=== PATIENT | male | born 1940 | race Caucasian/White ===

== ENCOUNTER 2024-04-13 15:27 | Observation (INO) | payer MEDICARE, MEDICAID, SELFPAY ==
[2024-04-13] VITALS (14 sets, daily range): BP systolic 141–168; BP diastolic 74–94; PULSE 64–98; RESP 15–20; TEMP 36.4–36.9; O2SAT 82–97; BMI 28.5; BMI 27.8
--- NOTE | 2024-04-13 15:28 | PC.NURSE ---
DR NÚÑEZ AT BEDSIDE
--- NOTE | 2024-04-13 15:34 | XR_ITS ---
PROCEDURE INFORMATION: Exam: XR Chest Exam date and time: 04/13/2024 4:27 PM Age: 84 years old Clinical indication: Other: AMS TECHNIQUE: Imaging protocol: Radiologic exam of the chest. Views: 1 view. COMPARISON: No relevant prior studies available. FINDINGS: Lungs: Multiple calcified granulomas are noted in both lungs. There is no focal consolidation. Senescent changes are present. Pleural spaces: No pleural effusion. No pneumothorax. Heart/Mediastinum: No significant cardiac silhouette enlargement. Bones/joints: Unremarkable. IMPRESSION: 1. No acute abnormality. 2. Chronic findings as discussed above.
--- NOTE | 2024-04-13 15:43 | ED_ITS ---
Discharge Plan Disposition Patient Disposition: Admitted Clinical Impressions Clinical Impression: Encephalopathy acute, Adult failure to thrive, Physical deconditioning Instructions Patient Instructions: DI for Altered Mental Status Discharge ED Provider: [facility] General Adult HPI General Chief complaint: Altered Mental Status Stated complaint: WEAKNESS Time Seen by Provider: 04/13/24 15:34 History of Present Illness HPI narrative: Please note that above description of symptoms, in this electronic medical record under categorization of recalled from ER triage doctor by RN are reflective of an initial nursing assessment, however, is not reflective of my full history and physical exam that was personally taken and clarified. Consequentially, this preceding description of symptoms, which may include the patient's categorized chief complaint in the EMR, do not reflect my personal clinical impression, and the ultimate description of history of present illness and patient stated complaints should be deferred to this section of the note. Unless stated otherwise or congruent with this section of the note, additional signs, symptoms, or incongruence should be interpreted as inaccurate with my clinical impression. Related Data Home Medications ?Medication ?Instructions ?Recorded ?Confirmed atorvastatin 40 mg tablet 40 mg PO HS 04/13/24 04/13/24 clopidogrel 75 mg tablet 75 mg PO DAILY 04/13/24 04/13/24 duloxetine 60 mg capsule,delayed 60 mg PO DAILY 04/13/24 04/13/24 release furosemide 20 mg tablet (Lasix) 20 mg PO DAILY 04/13/24 04/13/24 gabapentin 100 mg capsule 100 mg PO DAILY 04/13/24 04/13/24 gabapentin 300 mg tablet 300 mg PO HS 04/13/24 04/13/24 hydrocodone 10 mg-acetaminophen 1 tab PO Q6H PRN Pain 04/13/24 04/13/24 325 mg tablet metformin 1,000 mg tablet 1,000 mg PO BID 04/13/24 04/13/24 metoprolol tartrate 50 mg tablet 50 mg PO BID 04/13/24 04/13/24 tamsulosin 0.4 mg capsule (Flomax) 0.4 mg PO HS 04/13/24 04/13/24 Allergies Allergy/AdvReac Type Severity Reaction Status Date / Time No Known Allergies Allergy Verified 04/13/24 15:49 PFSH [facility] Disclaimer: The information contained in this section may have been updated after the patient was seen, as this information can be updated by other users. Social History Smoking Status: Unknown if ever smoked alcohol intake: never current occupational status: retired Travel in the last 8 weeks: None ROS Obtained: Yes All systems reviewed & no additional complaints except as documented Physical Exam General General appearance: alert and in no apparent distress Head Head exam: atraumatic and normocephalic Eye Eye exam: Present normal appearance, PERRL and EOMI ENT ENT exam: Present other (Vomitus on face) Neck Neck exam: Present normal inspection, full ROM and trachea midline Respiratory Respiratory exam: Present normal lung sounds bilaterally; Absent respiratory distress, wheezes, stridor, accessory muscle use or prolonged expiratory phase Cardiovascular Cardiovascular exam: Present regular rate, normal rhythm and other (Pulses equal symmetric in upper and lower extremities) Abdominal Exam Abdominal exam: Present soft; Absent distention, tenderness, guarding, rebound, rigidity or pulsatile mass Extremities Exam Extremities exam: Present edema (1+ pitting, chronic overlying skin changes) Neurological Exam Neurological exam: Present alert and CN II-XII intact; Absent oriented X3, normal gait or motor sensory deficit Skin Skin exam: Present warm and dry; Absent diaphoresis or erythema Medical Decision Making Medical Records Medical records reviewed: Yes I reviewed the patient's medical records. Screening: Per USPSTF and CDC recommendations, given the prevalence of disease in our region, it is our hospital?s policy to screen for HIV and viral Hepatitis for all patients aged 18 and over and those with ongoing risk factors. Ang Inquiry Pt receiving controlled substance: No Ang was queried for this patient: No Vital Signs: 04/13/24 15:27 Temperature 98.2 F Temperature Source Oral Pulse Rate [Radial] 96 H Respiratory Rate 18 Blood Pressure [Right Arm] 153/91 H Blood Pressure Mean [Right Arm] 111 Blood Pressure Source [Right Arm] Automatic Cuff Blood Pressure Position [Right Arm] Sitting 02 Sat by Pulse Oximetry 95 Oxygen Delivery Method Room Air Lab Data Lab Results 04/13/24 16:05: WBC 10.3, RBC 4.14 L, Hgb 14.0 L, Hct 40.8 L, MCV 98.6 H, MCH 33.8 H, MCHC 34.3, RDW 15.5, Plt Count 325, MPV 9.5, Neut % (Auto) 51.8, Lymph % (Auto) 38.9, [place] % (Auto) 6.4, Eos % (Auto) 2.0, Baso % (Auto) 0.7, Neut # (Auto) 5.3, Lymph # (Auto) 4.0, [place] # (Auto) 0.7, Eos # (Auto) 0.2, Baso # (Auto) 0.1, PT 12.5, INR 1.16 H, APTT 24.5, VBG pH 7.29 L, VBG pCO2 53.3 H, VBG pO2 34.3, VBG HCO3 25.3, VBG Total CO2 26.9, VBG O2 Saturation 59.2, VBG Base Excess -1.2, VBG Lactic Acid 3.3 H, Sodium 137, Potassium 4.0, Chloride 101, Carbon Dioxide 27, Anion Gap 13.0, BUN 11, Creatinine 0.70, Estimated Creat Clear 75, Estimated GFR 108, Est GFR ( Amer) 131, Glucose 140 H, Calcium 9.4, Magnesium 1.4 L, Total Bilirubin 1.3, AST 31, ALT 29, Alkaline Phosphatase 88, Troponin I < 0.01, NT-Pro-B Natriuret Pep 1670 H, Total Protein 7.9, Albumin 4.5, Globulin 3.4 H, Albumin/Globulin Ratio 1.3, Triglycerides 154 H, C holesterol 123 L, LDL Cholesterol Direct 65.47 L, VLDL Cholesterol 31, HDL Cholesterol 36 L, Cholesterol/HDL Ratio 3.4, Lipase 140, TSH 1.28, Thyroxine (T4) 9.5, Salicylates < 1.0 L, Plasma/Serum Alcohol < 10 04/13/24 16:18: Lactate 3.3 H 04/13/24 16:05 04/13/24 16:05 Orders (Tests/Meds): ED MEDICATIONS Generic Name Dose Route Start Last Admin Trade Name Freq PRN Reason Stop Dose Admin Lactated Ringer's 1,000 mls @ 999 mls/hr 04/13/24 16:59 Lactated Ringer's 1000 Ml Bag IV 04/13/24 17:59 .Q1H1M ONE Discontinued Medications Generic Name Dose Route Start Last Admin Trade Name Freq PRN Reason Stop Dose Admin Iopamidol 150 ml 04/13/24 16:50 04/13/24 16:56 Iopamidol-370 (76%);100ml Bottle IV 04/13/24 16:51 Not Given ONCE ONE Sodium Chloride 10 ml 04/13/24 16:50 04/13/24 16:57 Sodium Chloride 0.9% 10ml Syr (Rad Only) IV 04/13/24 16:51 Not Given ONCE ONE Sodium Chloride 50 ml 04/13/24 16:50 04/13/24 16:57 0.9 % Sodium Chloride 50 Ml Vial IV 04/13/24 16:51 Not Given ONCE ONE ORDERS Category Date Time Status CT head/brain wo con Stat Cat Scan 04/13/24 16:26 Completed Grain Elevator Motor Starter Consult [Consult to Case Management] [ Cons 04/13/24 17:18 Active CONS] Routine XR chest portable Stat Exams 04/13/24 15:34 Completed Acetone, Serum (Rapid) Stat Lab 04/13/24 16:05 Results Complete Blood Count Auto Diff Stat Lab 04/13/24 16:05 Completed Comprehensive Metabolic Panel Stat Lab 04/13/24 16:05 Results Ethanol [Ethyl Alcohol] Stat Lab 04/13/24 16:05 Completed HIV Combo Stat Lab 04/13/24 16:05 Received Hemoglobin A1C Stat Lab 04/13/24 16:05 Received Hepatitis C Ab Qual. W/ RFX Stat Lab 04/13/24 16:05 Received Lactic Acid Stat Lab 04/13/24 16:18 Completed Lipase Stat Lab 04/13/24 16:05 Completed Lipid Panel Stat Lab 04/13/24 16:05 Completed Magnesium Stat Lab 04/13/24 16:05 Completed NT Pro Brain Natriuretic Pep. Stat Lab 04/13/24 16:05 Completed PT INR [Prothrombin Time INR] Stat Lab 04/13/24 16:05 Completed PTT [Activated Partial Thrombo Time] Stat Lab 04/13/24 16:05 Completed Salicylate Stat Lab 04/13/24 16:05 Results T4 (Thyroxine) Stat Lab 04/13/24 16:05 Results TSH [Thyroid Stimulating Hormone] Stat Lab 04/13/24 16:05 Results Troponin I Q3H Lab 04/13/24 18:45 Ordered Troponin I Q3H Lab 04/13/24 21:45 Ordered Troponin I Stat Lab 04/13/24 16:05 Results Urinalysis and Microscopic Stat Lab 04/13/24 15:38 Ordered Blood Culture Stat Micro 04/13/24 17:20 Received Venous Blood Gas Stat RT 04/13/24 16:05 Completed HEART Score History (anamnesis): Slightly suspicious ECG: Normal Age: >65 years Risk factors: 3 or more risk factors Troponin: </= normal limit HEART Score: 4 Medical Decision Narrative: 84-year-old male history of hypertension, hyperlipidemia, CAD status post stenting, diabetes, chronic debility with stage I pressure ulcer presenting with weakness. Per EMS, family called EMS because they wanted EMS to take him to inpatient rehab. EMS told family that they do not transport patients to rehab, so patient's family told EMS to just take him to the hospital. Patient in no acute complaints on their arrival. Per EMS, patient was alert, oriented, answering questions appropriately and did not have any complaints. Glucose 126 just prior to arrival with EMS. On my evaluation, patient is alert, oriented only to person. States that he thinks we are in a garage, and the year is 20 something. Denies any acute complaints at this time. History was obtained via conversation with EMS, patient. On arrival, patient hemodynamically stable, alert, appropriately interactive, moving all extremities spontaneously, pupils equal and reactive to light. Full physical exam performed and significant for NIHSS 0. Patient following commands bilaterally. Pupils are 3 mm and reactive bilaterally. He does have vomitus on his face, but denies any acute vomiting. States that it was the EMS ride that made him feel nauseated. No headache, vision changes, chest pain, shortness of breath, abdominal pain, or any other complaints. Patient's lungs are quiet bilaterally without any focal breath sounds, cardiac exam with no murmur gallop or rub, but he does have 1+ lower extremity pitting edema with chronic skin changes. Stage I sacral decubitus ulcer. Differential includes acute on chronic debility, deconditioning, musculoskeletal weakness, sepsis, urinary tract infection, metabolic abnormality, acute renal failure, pneumonia, iatrogenic, overdose, ACS, [place] among others. Patient placed on continuous cardiac monitoring and continuous pulse ox with initial blood pressure 153/91, heart rate 96, saturation 95% on room air. Independent interpretation of EKG shows sinus rhythm 93 bpm with MO 177, QRS 104, QTc 425. Leftward axis. No acute ischemic change. Patient was given 1 L fluids for symptomatic management and correction of underlying abnormalities. Workup independently interpreted and significant for nonactionable CBC or chemistry. Patient's kidney function normal. Troponin negative. VBG with mild respiratory acidosis with 7.29 pH, CO2 mildly elevated at 53.3. Lactate 3.3. Magnesium low, this was repleted IV. On independent interpretation of imaging, patient's lungs without acute infiltrate. No obvious cardiopulmonary disease. CT head without contrast with generalized cerebral volume loss with dilated ventricles and deep sulci. See radiology read for full review of final results. On reevaluation, patient still has no acute complaints. Family was contacted and stated that they initially called EMS because patient had what appeared to be a wound on his bottom. Son is able to bathe the patient 1 time a week and otherwise, his mother (patient's ) largely unable to take care of patient in any regard. Combination of concern for wound on his buttocks as well as clinical deterioration and inability to care for patient at home prompted EMS call. Regarding social determinants of health, OT and PT were consulted and case was discussed for evaluation for placement. business services intern was also consulted to aid with placement. Hospital medicine was consulted and case was discussed at length. To be admitted for placement. Given patient presentation, workup, history, this most likely represents adult failure to thrive, acute on chronic deconditioning, need for placement. Because patient high risk for clinical decompensation, deemed appropriate for inpatient admission. Vice President Of [employer] disclaimer Much of this encounter note is an electronic lockstitch machine operator spoken language to printed text. Electronic lockstitch machine operator of the spoken language may permit errors. Although I have reviewed the note, some errors may still exist. Critical Care Critical Care Time Critical Care Time: No
[2024-04-13 16:19] LABS: Basophils # 0.1 K/mm3 (0-0.2); Basophils % 0.7 % (0.1-2.0); Eosinophils # 0.2 K/mm3 (0.0-0.4); Hematocrit 40.8 % (42.0-52.0); Lymphocytes % 38.9 % (10-50); Mean Corpuscular HGB Conc 34.3 g/dL (31.8-35.4); Mean Corpuscular Hemoglobin 33.8 pg (27.0-31.2); Mean Corpuscular Volume 98.6 fl (80-94); Mean Platelet Volume 9.5 fl (7.4-10.4); Monocytes # 0.7 K/mm3 (0.1-1.0); Monocytes % 6.4 % (1.7-9.3); Neutrophils # 5.3 K/mm3 (1.8-7.8); Neutrophils % 51.8 % (37.0-80.0); Platelet Count 325 K/mm3 (142-424); Red Blood Count 4.14 M/mm3 (4.60-6.20); Red Cell Distribution Width 15.5 % (11.5-17.5); White Blood Count 10.3 K/mm3 (4.8-10.8)
[2024-04-13 16:22] LABS: VBG Base Excess -1.2 mmol/L (-2.4-2.3); VBG HCO3 25.3 mmol/L (23-30); VBG Oxygen Saturation 59.2 % (50-70); VBG PCO2 53.3 mmol/L (35-51); VBG PH 7.29 mmol/L (7.31-7.41); VBG PO2 34.3 mmol/L (28-40); VBG Total CO2 26.9 mmol/L (23-27)
[2024-04-13 16:24] LABS: Lactate Venous 3.3 mmol/L (0.4-2.0)
--- NOTE | 2024-04-13 16:26 | CT_ITS ---
PROCEDURE INFORMATION: Exam: CT Head Without Contrast Exam date and time: 04/13/2024 4:25 PM Age: 84 years old Clinical indication: Altered mental status/memory loss; Additional info: AMS TECHNIQUE: Imaging protocol: Computed tomography of the head without contrast. Radiation optimization: All CT scans at this facility use at least one of these dose optimization techniques: automated exposure control; mA and/or kV adjustment per patient size (includes targeted exams where dose is matched to clinical indication); or iterative reconstruction. COMPARISON: No relevant prior studies available. FINDINGS: Brain: There is decreased attenuation within the periventricular white matter which is nonspecific and may be related to chronic microangiopathic ischemic change. Transependymal flow of cerebral spinal fluid is less likely. There is no acute intracranial hemorrhage or midline shift. Chronic encephalomalacia and gliosis is present in the right occipital lobe. 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 Cerebral ventricles: The lateral ventricles are moderately enlarged. The 3rd ventricle is mildly dilated. The fourth ventricle is normal in caliber. No obstructing mass is seen. Mild cerebral substance loss is present. However, the sulci along the cerebral convexities do not appear significantly enlarged to suggest proportionate underlying cerebral volume loss. Therefore, the ventriculomegaly may be related to normal pressure hydrocephalus and/or ex vacuo dilation. Paranasal sinuses: There is no acute sinusitis. Mastoid air cells: Visualized mastoid air cells are well aerated. Orbital cavities: The visualized orbits appear unremarkable. Bones: Unremarkable. No acute fracture. Soft tissues: Unremarkable. IMPRESSION: 1. 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 2. No acute intracranial hemorrhage. 3. Chronic findings as discussed above.
[2024-04-13 16:32] LABS: Chloride 101 mmol/L (98-107)
[2024-04-13 16:33] LABS: Albumin Level 4.5 g/dl (3.5-5.0); Sodium 137 mmol/L (136-145)
[2024-04-13 16:35] LABS: Blood Urea Nitrogen 11 mg/dl (9-20); Creatinine Clearance Estimated 75 mL/min (50-200); Estimated Glomerular Filt Rate 108 ml/min (>60); GFR (African American) 131 ML/MIN (>60)
[2024-04-13 16:36] LABS: Alanine Aminotransferase 29 U/L (12-78); Albumin/Globulin Ratio 1.3 (1.1-1.8); Alkaline Phosphatase 88 U/L (38-126); Aspartate Amino Transferase 31 U/L (17-59); Bilirubin,Total 1.3 mg/dl (0.2-1.3); Calcium 9.4 mg/dl (8.4-10.2); Carbon Dioxide 27 mmol/L (22.0-30.0); Globulin 3.4 g/dL (1.3-3.2); Glucose 140 mg/dl (74-100); Total Protein,Serum 7.9 g/dl (6.3-8.2)
[2024-04-13 16:39] LABS: Activated Partial Thrombo Time 24.5 seconds (22.8-30.6)
[2024-04-13 16:52] LABS: T4 (Thyroxine) 9.5 ug/dl (5.53-11.0)
[2024-04-13 16:58] LABS: Lactic Acid 3.3 mmol/L (0.7-2.1)
[2024-04-13 16:58] LABS: Salicylate < 1.0 mg/dL (2.0-20.0); Troponin I < 0.01 ng/ml (0.00-0.034)
[2024-04-13 16:59] LABS: INR 1.16 (0.9-1.1); Prothrombin Time 12.5 seconds (10.1-12.5)
--- NOTE | 2024-04-13 17:02 | PC.NURSE ---
SPOKE WITH SON REYNA ([phone]) CALL WITH ANY CONCERNS
[2024-04-13 17:06] LABS: Thyroid Stimulating Hormone 1.28 uIU/mL (0.465-4.68)
--- NOTE | 2024-04-13 17:06 | PC.NURSE ---
DR NÚÑEZ SPEAKING WITH HOSPITALIST
[2024-04-13 17:15] LABS: Chol/HDL Ratio 3.4 (1-3.5); Cholesterol 123 mg/dl (140-200); HDL Cholesterol 36 mg/dl (40-60); Lipase 140 U/L (23-300); Magnesium 1.4 mg/dl (1.6-2.3); Triglycerides 154 mg/dl (30-150); VLDL Cholesterol 31 mg/dL (0-40)
[2024-04-13 17:19] LABS: Ethyl Alcohol < 10 mg/dl (0-10)
[2024-04-13 17:26] LABS: NT Pro Brain Natriuretic Pep. 1670 pg/mL (0-450)
--- NOTE | 2024-04-13 17:29 | ECG_ITS ---
APPROVED REPORT Exam: Resting ECG HR:93 bpm ECG Measurements Heart Rate 93 AXES [place] 177 P 87 QRSd 104 QRS -34 QT 375 T 34 QTc 425 Conclusion Sinus rhythm Q waves in inferior leads consistent with old myocardial infarction Electronically signed by : TRISTON NÚÑEZ, 04/15/2024 22:29:00
--- NOTE | 2024-04-13 17:31 | INFXCTL.NOTE ---
housekeeper nanny called and states bed for pt is being cleaned, will be a while.
[2024-04-13 17:41] LABS: Direct LDL Cholesterol 65.47 mg/dL (100-129)
[2024-04-13 17:55] LABS: Hemoglobin A1C 6.7 % (4.0-6.0)
[2024-04-13 17:58] LABS: HIV Combo NEGATIVE (Negative)
--- NOTE | 2024-04-13 17:59 | PC.NURSE ---
JOSÉ MIGUEL [phone]
[2024-04-13] MEDS: MAGNESIUM SULFATE IN WATER 2 GM/50 ML PIGGYBACK IV ×3 (18:05→23:02)
[2024-04-13] MEDS: LACTATED RINGERS 1000ML 1,000 ML 999 ML IV (18:05)
[2024-04-13 18:06] LABS: Hepatitis C Ab Qual. W/ RFX NEGATIVE (Negative)
[2024-04-13 18:16] LABS: Microscopic, Urine URINE MICROSCOPIC (MICROSCOPIC)
[2024-04-13 18:18] LABS: Appearance,Urine CLEAR (Clear); Bilirubin,Urine Negative (Negative); Blood, Urine Negative (Negative); Color,Urine YELLOW (Yellow); Glucose,Urine (UA) Negative (Negative); Ketones,Urine Negative (Negative); Leukocyte Esterase,Urine Negative (Negative); Nitrate,Urine Negative (Negative); Protein,Urine Negative (Negative); Specific Gravity, Urine 1.025 (1.005-1.030)
[2024-04-13 18:26] LABS: Acetone, Serum (Rapid) None Detected (None Detect)
[2024-04-13 18:33] LABS: Bacteria,Urine Trace /lpf
--- NOTE | 2024-04-13 18:40 | PC.NURSE ---
arrived by stretcher from ED
[2024-04-13 20:25] LABS: Reflex Lactic Add Lactic Reflex
[2024-04-13 20:37] LABS: Troponin I < 0.01 ng/ml (0.00-0.034)
[2024-04-13 20:51] LABS: Lactic Acid Follow Up (RFLX 1) 2.4 mmol/L (0.7-2.1)
--- NOTE | 2024-04-13 20:59 | P.HP_ITS ---
History of Present Illness *Admission Date: 04/13/24 *Reason for visit:: Family unable to take care of patient, physical decondition *History of present illness: Gerardo Kay is a 84-year-old male with a medical history significant for CAD s/p 6 stents, type 2 diabetes, BPH who presents from home after family called EMS for patient to be placed at a fpc. Per patient and son who was on the phone, patient lives with his and grandson who are unable to take care of him as he is essentially bedbound at this time due to significant physical deconditioning. This has worsened over the past several months. Denies difficulty with urination, bowel movements. I spoke to son over the phone who really desires his dad to get short-term rehab and moving with him instead who is able to take care of him. Workup in the ED relatively unremarkable. Case discussed with ED provider and decision was made to admit patient for significant physical deconditioning and unable to take care of himself. [facility] Disclaimer: The information contained in this section may have been updated after the patient was seen, as this information can be updated by other users. Social History (Updated 04/13/24 @ 17:58 by [facility]o South MD) Smoking Status: Unknown if ever smoked alcohol intake: never current occupational status: retired Travel in the last 8 weeks: None Other Medical History Have you received the Flu Vaccine for this season: No Have you received the Pneumonia Vaccine: No Meds Home Medications and Allergies Home Medications ?Medication ?Instructions ?Recorded ?Confirmed ?Type atorvastatin 40 mg tablet 40 mg PO HS 04/13/24 04/13/24 History clopidogrel 75 mg tablet 75 mg PO DAILY 04/13/24 04/13/24 History duloxetine 60 mg capsule,delayed 60 mg PO DAILY 04/13/24 04/13/24 History release furosemide 20 mg tablet (Lasix) 20 mg PO DAILY 04/13/24 04/13/24 History gabapentin 100 mg capsule 100 mg PO DAILY 04/13/24 04/13/24 History gabapentin 300 mg tablet 300 mg PO HS 04/13/24 04/13/24 History hydrocodone 10 mg-acetaminophen 1 tab PO Q6H PRN Pain 04/13/24 04/13/24 History 325 mg tablet metformin 1,000 mg tablet 1,000 mg PO BID 04/13/24 04/13/24 History metoprolol tartrate 50 mg tablet 50 mg PO BID 04/13/24 04/13/24 History tamsulosin 0.4 mg capsule (Flomax) 0.4 mg PO HS 04/13/24 04/13/24 History New Prescriptions to Start Prescriptions: Allergies Allergy/AdvReac Type Severity Reaction Status Date / Time No Known Allergies Allergy Verified 04/13/24 15:49 Exam Data for Last 24 hours Vital signs and Labs for Last 24 Hours: Temp Pulse Resp BP Pulse Ox O2 Del Method 97.6 F 90 18 141/74 H 95 Room Air 04/13/24 20:00 04/13/24 20:00 04/13/24 20:00 04/13/24 20:00 04/13/24 20:00 04/13/24 20:00 Laboratory Results - last 24 hr 04/13/24 16:05: WBC 10.3, RBC 4.14 L, Hgb 14.0 L, Hct 40.8 L, MCV 98.6 H, MCH 33.8 H, MCHC 34.3, RDW 15.5, Plt Count 325, MPV 9.5, Neut % (Auto) 51.8, Lymph % (Auto) 38.9, [place] % (Auto) 6.4, Eos % (Auto) 2.0, Baso % (Auto) 0.7, Neut # (Auto) 5.3, Lymph # (Auto) 4.0, [place] # (Auto) 0.7, Eos # (Auto) 0.2, Baso # (Auto) 0.1, PT 12.5, INR 1.16 H, APTT 24.5, VBG pH 7.29 L, VBG pCO2 53.3 H, VBG pO2 34.3, VBG HCO3 25.3, VBG Total CO2 26.9, VBG O2 Saturation 59.2, VBG Base Excess -1.2, VBG Lactic Acid 3.3 H, Sodium 137, Potassium 4.0, Chloride 101, Carbon Dioxide 27, Anion Gap 13.0, BUN 11, Creatinine 0.70, Estimated Creat Clear 75, Estimated GFR 108, Est GFR ( Amer) 131, Glucose 140 H, Hemoglobin A1c 6.7 H, Calcium 9.4, Magnesium 1.4 L, Total Bilirubin 1.3, AST 31, ALT 29, Alkaline Phosphatase 88, Troponin I < 0.01, NT-Pro-B Natriuret Pep 1670 H, Total Protein 7.9, Albumin 4.5, Globulin 3.4 H, Albumin/Globulin Ratio 1.3, Triglycerides 154 H, Cholesterol 123 L, LDL Cholesterol Direct 65.47 L, VLDL Cholesterol 31, HDL Cholesterol 36 L, Cholesterol/HDL Ratio 3.4, Lipase 140, TSH 1.28, Thyroxine (T4) 9.5, Salicylates < 1.0 L, Plasma/Serum Alcohol < 10, Acetone Level None detected, HCV Ab MT w/Rflx PCR Qn Negative, HIV Ag/Ab Combo Qual Negative 04/13/24 16:18: Lactate 3.3 H 04/13/24 18:10: Urine Color Yellow, Urine Appearance Clear, Urine pH 6.0, Ur Specific [place] 1.025, Urine Protein Negative, Urine Glucose (UA) Negative, Urine Ketones Negative, Urine Blood Negative, Urine Nitrate Negative, Urine Bilirubin Negative, Urine Urobilinogen 1.0, Ur Leukocyte Esterase Negative, Urine RBC None, Urine WBC None, Ur Squamous Epith Cells None, Urine Bacteria Trace 04/13/24 19:54: Lactate 2.4 H, Troponin I < 0.01 I & O for Last 24 hours: Intake & Output 04/10/24 04/11/24 04/12/24 04/13/24 23:59 23:59 23:59 23:59 Weight 88.139 kg Constitutional Constitutional: no acute distress *Routine HEENT Exam Head: Present normocephalic Eye: Present EOMI and PERRL ENT: Present mucous membranes moist *Routine Neck Exam Neck: Present supple; Absent lymphadenopathy *Routine Respiratory Exam Respiratory: Present CTA bilaterally *Routine Cardiovascular Exam Cardiovascular: Present RRR *Routine Abdominal Exam Abdominal: Present soft and normoactive bowel sounds; Absent tenderness *Routine Rectal Exam Rectal:: deferred *Routine Genitalia Exam Genitalia:: deferred *Routine Extremities Exam Extremities: Absent cyanosis, clubbing or edema *Routine Skin Exam Skin: Present warm; Absent rash *Routine Neurological Exam Neurological: Present alert and oriented X3 Assessment and Plan *Assessment and plan (1) Physical deconditioning: Status: Acute Category: Medical Code(s): R53.81 - Other malaise (2) CAD (coronary artery disease): Status: Acute Category: Medical Code(s): I25.10 - Atherosclerotic heart disease of [place] coronary artery without angina pectoris (3) Type 2 diabetes mellitus: Status: Acute Category: Medical Code(s): E11.9 - Type 2 diabetes mellitus without complications (4) Peripheral neuropathy: Status: Acute Category: Medical Code(s): G62.9 - Polyneuropathy, unspecified (5) BPH (benign prostatic hyperplasia): Status: Acute Category: Medical Code(s): N40.0 - Benign prostatic hyperplasia without lower urinary tract symptoms Irwin Kay is a 84-year-old male with a medical history significant for CAD s/p 6 stents, type 2 diabetes, BPH who presents from home after family called EMS for patient to be placed at a fpc. Per patient and son who was on the phone, patient lives with his and grandson who are unable to take care of him as he is essentially bedbound at this time due to significant physical deconditioning. This has worsened over the past several months. Denies difficulty with urination, bowel movements. I spoke to son over the phone who really desires his dad to get short-term rehab and moving with him instead who is able to take care of him. Workup in the ED relatively unremarkable. Case discussed with ED provider and decision was made to admit patient for significant physical deconditioning and unable to take care of himself. #Physical deconditioning ? This has worsened over the past several months per patient and son. No focal neurological deficits. Able to urinate, have bowel movements. Low suspicion for cauda equina syndrome. ? Son wishes patient to get short-term rehab then moving with them instead who is able to take care of him. ? PT/OT consulted, pending recommendations. ? Follow-up B12, folate. TSH normal. ? Consider CT of lumbar spine if symptoms do not improve. Chronic medical conditions: #CAD s/p 6 stents ? Resumed home aspirin, clopidogrel, atorvastatin, metoprolol tartrate. Will need to clarify tomorrow why patient he still is on DAPT. ? Unclear history of heart failure, hold home Lasix 20 mg for now. #Type 2 diabetes #Peripheral neuropathy ? Hemoglobin A1c 6.7%. ? Resume home metformin 1000 mg twice daily. Initially presented with lactic acidosis, likely from dehydration. Continue monitor. Renal function intact. ? LDSSI, ACHS glucose checks. ? Resume home gabapentin 300 mg nightly, 100 mg in the morning. #BPH ? Resumed home tamsulosin. Full code DVT prophylaxis: Lovenox 40 mg
[2024-04-13] MEDS: TAMSULOSIN 0.4MG CAPSULE 0.4 MG PO (22:02)
[2024-04-13] MEDS: METOPROLOL TARTRATE 50MG TABLET 50 MG PO (22:02)
[2024-04-13] MEDS: ATORVASTATIN 40MG TABLET 40 MG PO (22:03)
[2024-04-13] MEDS: GABAPENTIN 300 MG 300 EACH PO (22:04)
[2024-04-13 22:23] LABS: Reflex Lactic (2 hrs) Add Lactic Reflex
[2024-04-13 22:44] LABS: Lactic Acid Follow up (RFLX 2) 2.2 mmol/L (0.7-2.1)
[2024-04-13 23:12] LABS: Troponin I 0.01 ng/ml (0.00-0.034)
[2024-04-13 23:39] LABS: Folate 7.64 ng/mL
--- NOTE | 2024-04-14 01:51 | PC.WOUNDNOTE ---
small healing open area to right buttock
[2024-04-14 04:00] VITALS: BP 126/74; PULSE 76; RESP 14; TEMP 36.5; O2SAT 94; BMI 28.0
[2024-04-14] MEDS: humaLOG 100 UNITS/ML 10ML VIAL (SSI) SUBCUT (05:20)
--- NOTE | 2024-04-14 05:41 | PC.NURSE ---
Upon initial assessment pt was alert to self and extremely lethargic and sleepy, Pt slept well this shift and is alert and oriented this morning. Pt did eat after waking this am.
[2024-04-14 06:30] LABS: POC Glucose,Bedside 161 (70-110)
[2024-04-14 06:34] LABS: Basophils # 0.1 K/mm3 (0-0.2); Basophils % 0.8 % (0.1-2.0); Eosinophils # 0.3 K/mm3 (0.0-0.4); Eosinophils % 4.1 % (0.1-12.0); Hematocrit 34.3 % (42.0-52.0); Lymphocytes # 2.3 K/mm3 (0.7-4.5); Lymphocytes % 32.8 % (10-50); Mean Corpuscular HGB Conc 34.1 g/dL (31.8-35.4); Mean Corpuscular Hemoglobin 33.5 pg (27.0-31.2); Mean Corpuscular Volume 98.3 fl (80-94); Mean Platelet Volume 9.6 fl (7.4-10.4); Monocytes # 0.6 K/mm3 (0.1-1.0); Monocytes % 7.7 % (1.7-9.3); Neutrophils # 3.9 K/mm3 (1.8-7.8); Neutrophils % 54.5 % (37.0-80.0); Platelet Count 281 K/mm3 (142-424); Red Blood Count 3.49 M/mm3 (4.60-6.20); Red Cell Distribution Width 15.3 % (11.5-17.5); White Blood Count 7.1 K/mm3 (4.8-10.8)
[2024-04-14 06:42] LABS: Alanine Aminotransferase 26 U/L (12-78); Albumin Level 3.6 g/dl (3.5-5.0); Albumin/Globulin Ratio 1.3 (1.1-1.8); Alkaline Phosphatase 70 U/L (38-126); Anion Gap 12.8 mEq/L (5-15); Aspartate Amino Transferase 36 U/L (17-59); Bilirubin,Total 1.2 mg/dl (0.2-1.3); Blood Urea Nitrogen 12 mg/dl (9-20); Calcium 8.5 mg/dl (8.4-10.2); Carbon Dioxide 24 mmol/L (22.0-30.0); Chloride 103 mmol/L (98-107); Creatinine Clearance Estimated 72 mL/min (50-200); Estimated Glomerular Filt Rate 129 ml/min (>60); GFR (African American) 156 ML/MIN (>60); Globulin 2.8 g/dL (1.3-3.2); Glucose 143 mg/dl (74-100); Magnesium 2.5 mg/dl (1.6-2.3); Potassium 3.8 mmoL/L (3.5-5.1); Sodium 136 mmol/L (136-145); Total Protein,Serum 6.4 g/dl (6.3-8.2)
[2024-04-14 07:33] LABS: Vitamin B12 357 pg/mL (239-931)
--- NOTE | 2024-04-14 07:36 | HMH.PHAINT1 ---
Pharmacy Intervention Comments: MEDICATION RECONCILIATION COMPLETED ON PATIENT USING EXTERNAL FILL HISTORY FROM PHARMACY. -NANCY WILKERSON, M[facility]
[2024-04-14 07:45] LABS: Hemoglobin 11.7 g/dL (14.1-18.0)
[2024-04-14 08:00] VITALS: BP 145/91; PULSE 82; RESP 17; TEMP 36.9; O2SAT 93
[2024-04-14] MEDS: DULOXETINE 30MG CAPSULE.DR 60 MG PO (08:13)
[2024-04-14] MEDS: METFORMIN 500MG TABLET 1000 MG PO ×2 (08:13→18:14)
[2024-04-14] MEDS: ENOXAPARIN 40MG/0.4ML SYRINGE 40 MG SUBCUT (08:13)
[2024-04-14] MEDS: GABAPENTIN 100MG CAPSULE 100 MG PO (08:13)
[2024-04-14] MEDS: CLOPIDOGREL 75MG TAB 75 MG PO (08:13)
[2024-04-14] MEDS: METOPROLOL SUCCINATE XL 50MG TABLET 50 MG PO (08:13)
--- NOTE | 2024-04-14 08:18 | P.PN_ITS ---
Subjective *Date: 04/14/24 *Time: 08:18 Interval history: Patient is resting comfortably this morning, no concerns. Ready to work with PT. Exam Data for Last 24 hours Vital signs and Labs for Last 24 Hours: Temp Pulse Resp BP Pulse Ox O2 Del Method 97.7 F 76 14 126/74 94 L Room Air 04/14/24 04:00 04/14/24 04:00 04/14/24 04:00 04/14/24 04:00 04/14/24 04:00 04/14/24 06:41 Laboratory Results - last 24 hr 04/13/24 16:05: WBC 10.3, RBC 4.14 L, Hgb 14.0 L, Hct 40.8 L, MCV 98.6 H, MCH 33.8 H, MCHC 34.3, RDW 15.5, Plt Count 325, MPV 9.5, Neut % (Auto) 51.8, Lymph % (Auto) 38.9, [place] % (Auto) 6.4, Eos % (Auto) 2.0, Baso % (Auto) 0.7, Neut # (Auto) 5.3, Lymph # (Auto) 4.0, [place] # (Auto) 0.7, Eos # (Auto) 0.2, Baso # (Auto) 0.1, PT 12.5, INR 1.16 H, APTT 24.5, VBG pH 7.29 L, VBG pCO2 53.3 H, VBG pO2 34.3, VBG HCO3 25.3, VBG Total CO2 26.9, VBG O2 Saturation 59.2, VBG Base Excess -1.2, VBG Lactic Acid 3.3 H, Sodium 137, Potassium 4.0, Chloride 101, Carbon Dioxide 27, Anion Gap 13.0, BUN 11, Creatinine 0.70, Estimated Creat Clear 75, Estimated GFR 108, Est GFR ( Amer) 131, Glucose 140 H, Hemoglobin A1c 6.7 H, Calcium 9.4, Magnesium 1.4 L, Total Bilirubin 1.3, AST 31, ALT 29, Alkaline Phosphatase 88, Troponin I < 0.01, NT-Pro-B Natriuret Pep 1670 H, Total Protein 7.9, Albumin 4.5, Globulin 3.4 H, Albumin/Globulin Ratio 1.3, Triglycerides 154 H, Cholesterol 123 L, LDL Cholesterol Direct 65.47 L, VLDL Cholesterol 31, HDL Cholesterol 36 L, Cholesterol/HDL Ratio 3.4, Lipase 140, TSH 1.28, Thyroxine (T4) 9.5, Salicylates < 1.0 L, Plasma/Serum Alcohol < 10, Acetone Level None detected, HCV Ab MT w/Rflx PCR Qn Negative, HIV Ag/Ab Combo Qual Negative 04/13/24 16:18: Lactate 3.3 H 04/13/24 18:10: Urine Color Yellow, Urine Appearance Clear, Urine pH 6.0, Ur Specific [place] 1.025, Urine Protein Negative, Urine Glucose (UA) Negative, Urine Ketones Negative, Urine Blood Negative, Urine Nitrate Negative, Urine Bilirubin Negative, Urine Urobilinogen 1.0, Ur Leukocyte Esterase Negative, Ur ine RBC None, Urine WBC None, Ur Squamous Epith Cells None, Urine Bacteria Trace 04/13/24 19:54: Lactate 2.4 H, Troponin I < 0.01 04/13/24 22:04: Lactate 2.2 H, Troponin I 0.01, Folate 7.64 04/14/24 05:07: POC Glucose 161 H 04/14/24 05:57: WBC 7.1 D, RBC 3.49 L, Hgb 11.7 L D, Hct 34.3 L, MCV 98.3 H, MCH 33.5 H, MCHC 34.1, RDW 15.3, Plt Count 281, MPV 9.6, Neut % (Auto) 54.5, Lymph % (Auto) 32.8, [place] % (Auto) 7.7, Eos % (Auto) 4.1, Baso % (Auto) 0.8, Neut # (Auto) 3.9, Lymph # (Auto) 2.3, [place] # (Auto) 0.6, Eos # (Auto) 0.3, Baso # (Auto) 0.1, Sodium 136, Potassium 3.8, Chloride 103, Carbon Dioxide 24, Anion Gap 12.8, BUN 12, Creatinine 0.60 L, Estimated Creat Clear 72, Estimated GFR 129, Est GFR ( Amer) 156, Glucose 143 H, Calcium 8.5, Magnesium 2.5 H D, Total Bilirubin 1.2, AST 36, ALT 26, Alkaline Phosphatase 70, Total Protein 6.4, Albumin 3.6 D, Globulin 2.8, Albumin/Globulin Ratio 1.3, Vitamin B12 357 I & O for Last 24 hours: Intake & Output 04/11/24 04/12/24 04/13/24 04/14/24 23:59 23:59 23:59 23:59 Intake Total 220 / 220 Output Total 350 / 350 Balance -130 / -130 Weight 88.139 kg 88.859 kg Constitutional Comments: Constitutional Constitutional: no acute distress *Routine HEENT Exam Head: Present normocephalic Eye: Present EOMI and PERRL ENT: Present mucous membranes moist *Routine Neck Exam Neck: Present supple; Absent lymphadenopathy *Routine Respiratory Exam Respiratory: Present CTA bilaterally *Routine Cardiovascular Exam Cardiovascular: Present RRR *Routine Abdominal Exam Abdominal: Present soft and normoactive bowel sounds; Absent tenderness *Routine Rectal Exam Rectal:: deferred *Routine Genitalia Exam Genitalia:: deferred *Routine Extremities Exam Extremities: Absent cyanosis, clubbing or edema *Routine Skin Exam Skin: Present warm; Absent rash *Routine Neurological Exam Neurological: Present alert and oriented X3 Assessment and Plan *Assessment and plan (1) Physical deconditioning: Status: Acute Category: Medical Code(s): R53.81 - Other malaise (2) CAD (coronary artery disease): Status: Acute Category: Medical Code(s): I25.10 - Atherosclerotic heart disease of [place] coronary artery without angina pectoris (3) Type 2 diabetes mellitus: Status: Acute Category: Medical Code(s): E11.9 - Type 2 diabetes mellitus without complications (4) Peripheral neuropathy: Status: Acute Category: Medical Code(s): G62.9 - Polyneuropathy, unspecified (5) BPH (benign prostatic hyperplasia): Status: Acute Category: Medical Code(s): N40.0 - Benign prostatic hyperplasia without lower urinary tract symptoms Plan Gerardo Kay is a 84-year-old male with a medical history significant for CAD s/p 6 stents, type 2 diabetes, BPH who presents from home after family called EMS for patient to be placed at a care home. Per patient and son who was on the phone, patient lives with his and grandson who are unable to take care of him as he is essentially bedbound at this time due to significant physical deconditioning. This has worsened over the past several months. Denies difficulty with urination, bowel movements. I spoke to son over the phone who really desires his dad to get short-term rehab and moving with him instead who is able to take care of him. Workup in the ED relatively unremarkable. Case discussed with ED provider and decision was made to admit patient for significant physical deconditioning and unable to take care of himself. #Physical deconditioning ? This has worsened over the past several months per patient and son. No focal neurological deficits. Able to urinate, have bowel movements. Low suspicion for cauda equina syndrome. ? Son wishes patient to get short-term rehab then moving with them instead who is able to take care of him. ? PT/OT consulted, pending recommendations. ? B12 and folate low normal, will start oral supplementation. TSH normal. ? Consider CT of lumbar spine if symptoms do not improve. Chronic medical conditions: #CAD s/p 6 stents ? Resumed home aspirin, clopidogrel, atorvastatin, metoprolol tartrate. Will need to clarify tomorrow why patient he still is on DAPT. ? Unclear history of heart failure, hold home Lasix 20 mg for now. #Type 2 diabetes #Peripheral neuropathy ? Hemoglobin A1c 6.7%. ? Resume home metformin 1000 mg twice daily. Initially presented with lactic acidosis, likely from dehydration. Continue monitor. Renal function intact. ? LDSSI, ACHS glucose checks. ? Resume home gabapentin 300 mg nightly, 100 mg in the morning. #BPH ? Resumed home tamsulosin. Full code DVT prophylaxis: Lovenox 40 mg
--- NOTE | 2024-04-14 09:42 | HMH.PTEV ---
Physical Therapy Evaluation Rehab PT IP Evaluation Start: 04/13/24 15:34 Freq: ONCE Status: Active Protocol: Document 04/14/24 09:27 LEANDRO (Rec: 04/14/24 09:41 LEANDRO [id number]) Subjective/History History History Per H&P: Gerardo Kay is a 84-year-old male with a medical history significant for CAD s/p 6 stents, type 2 diabetes, BPH who presents from home after family called EMS for patient to be placed at a half-way. Per patient and son who was on the phone, patient lives with his and grandson who are unable to take care of him as he is essentially bedbound at this time due to significant physical deconditioning. This has worsened over the past several months. Denies difficulty with urination, bowel movements. I spoke to son over the phone who really desires his dad to get short- term rehab and moving with him instead who is able to take care of him. Workup in the ED relatively unremarkable. Case discussed with ED provider and decision was made to admit patient for significant physical deconditioning and unable to take care of himself. Subjective Subjective PLOF: Pt was primarily bed bound. Pt required 1 person assist for BSC transfers and bed mobility per pt report. Pt reports he has not ambulated in over a year. Pt does not own a w/c or hospital bed. Home: Lives with his and grandson. is available to help but pt reports the lifting and care has become too much for her recently. New diagnosis of cancer in past 12 No months? Rehab PT IP Eval Objective Appearance Patient Behavior Appropriate,Cooperative Patient Orientation Person,Place Difficulty following instructions none Speech Pattern Clear Ambulation Patient Able to Ambulate No Balance Ability to Arise Unable Sitting Balance Leans or slides in chair Standing Balance Unsteady Transfers Bed Transfer Ability Maximum x 1 (75% assist) Sit to Stand Bed Transfer Ability Maximum x 2 (75% assist) Rehab PT IP prob,goals,plan Problems Date of Evaluation: 04/14/24 PT IP Problems Bed Mobility,Transfers,Gait, Balance,Self care,Safety Rehab Potential Rehab Potential Good Equipment Needs Assistive Devices Wheelchair Plan PT Intervention Plan Bed Mobility,Transfers,Gait, Balance,Self care,Safety, Therapeutic Exercise Other Intervention Plan 1-2 times PT Plan Frequency Daily Duration LOS Discharge Goals Bed Transfer Ability Moderate x 2 (50% assist) Sit to Stand Chair Transfer Ability Moderate x 2 (50% assist) Discharge Plan PT Discharge Plan Initial physical therapy evaluation performed. Patient presents below baseline at this time in functional mobility, transfers, and strength. Pt required Maximal A of 1-2 for all mobility. Pt was not able to maintain static sitting without Mod A. Pt unable to achieve full stand with RW despite Max A and elevated EOB. Pt not safe to return home at this time d/ t current level of functional mobility. PT recommending short-term rehabilitation stay upon d/c from [facility] to decrease caregiver burden and maximize safety upon d/c. Pt would benefit from skilled PT while at [facility] to prevent further functional decline and maximize safety with mobility. Eval Complexity Eval Charge Codes 40153 - High Complexity PHYSICIAN CERTIFICATION: I certify the specified therapy services for Gerardo Kay are required, authorized, and reviewed every 30 days.
--- NOTE | 2024-04-14 10:07 | SW/DCPLANNER ---
Addendum entered by Mecca Blackman 04/14/24 13:59: Patient has been approved SNF level of care at [facility] and will discharge today per MD. Addendum entered by Mecca Blackman 04/14/24 13:51: [facility]reen [facility]rera/ [facility] stated that precert will be started for SNF level of care. Addendum entered by Mecca Blackman 04/14/24 13:10: Shereen barrera/ [facility] can accept patient SNF level of care. Precert will be started today for this patient. Original Note: I spoke w/ this patient regarding plans once medically stable for discharge. PT/OT evaluated patient and recommended placement at time of discharge. Patient is able to answer my questions appropriately including name, and current location. Patient is agreeable to placement and does not have a preferred facility. Patient is agreeable to [facility] for SNF level of care. I did speak w/ patient's son (Lisandro) regarding discharge plans. Lisandro stated that he would prefer patient be at [facility] or [facility], complete therapy then return home w/ him. Patient information will be faxed to Shereen barrera/ [facility] this AM. I will continue to follow up.
--- NOTE | 2024-04-14 10:29 | HMH.OTEV ---
OT Inpatient Evaluation Rehab OT IP Evaluation Start: 04/13/24 15:34 Freq: ONCE Status: Active Protocol: Document 04/14/24 10:24 [facility] (Rec: 04/14/24 10:29 [facility] [id number]) Rehab OT IP Assessment Subjective History Pt oriented x 3 on arrival. Pt agreeable to engage in therapy evaluation. Per H&P: Gerardo Kay is a 84-year-old male with a medical history significant for CAD s/p 6 stents, type 2 diabetes, BPH who presents from home after family called EMS for patient to be placed at a long-term. Per patient and son who was on the phone, patient lives with his and grandson who are unable to take care of him as he is essentially bedbound at this time due to significant physical deconditioning. This has worsened over the past several months. Denies difficulty with urination, bowel movements. I spoke to son over the phone who really desires his dad to get short- term rehab and moving with him instead who is able to take care of him. Workup in the ED relatively unremarkable. Case discussed with ED provider and decision was made to admit patient for significant physical deconditioning and unable to take care of himself. Subjective PLOF: Pt was primarily bed bound. Pt required 1 person assist for BSC transfers and bed mobility per pt report. Pt reports he has not ambulated in over a year. Pt does not own a w/c or hospital bed. Home: Lives with his and grandson. is available to help but pt reports the lifting and care has become too much for her recent Objective Patient Orientation Person,Place,Birthday Right Upper Extremity Gross ROM Mod Limitation 50% Left Upper Extremity Gross ROM Mod Limitation 50% Shoulder ROM Limitations Muscle Weakness Elbow ROM Limitations Muscle Weakness Wrist Limitations of Range of Motion Muscle Weakness Bed Mobility bed mobility-scooting,bed mobility - supine/sit Assist Level Maximum x 2 (75% assist) Rehab OT IP prob,goals,plan Problems Date of Evaluation: 04/14/24 OT IP Problems Bed Mobility,Transfers,Balance ,Self care,Safety Rehab Potential Rehab Potential Good Equipment Needs Assistive Devices Rolling / Wheeled Walker Plan OT intervention Plan Bed Mobility,Transfers,Balance ,Self care,Safety,Therapeutic Exercise OT Plan Frequency Daily Duration LOS Discharge Goals Bed Mobility Ability Assistance x1 Sit to Stand Chair Transfer Ability Maximum x 1 (75% assist) Chair Transfer Ability Maximum x 1 (75% assist) Chair Transfer Technique Stand Pivot Chair Transfer Assistive Devices Rolling Walker Feeding Ability Assist with Tray Set Up Lower Body Dressing Ability Maximum Assistance Upper Body Dressing Ability Minimal Assistance Bathing Ability Maximum Assistance Performing Toilet Hygiene Ability Maximum Assistance Overall Commode/Toilet Transfer Ability Maximum Assistance Commode/Toilet Transfer Technique Sit to/from Ambulatory Commode/Toilet Transfer Assistive Grab Bars Devices Oral Care Assist Minimal Assistance Decrease in Endurance No Discharge Plan OT Discharge Plan Initial occupational therapy evaluation performed. Patient presents below baseline at this time in functional transfers, ADL independence, and strength. Pt required Maximal A of 1-2 for all bed mobility. Pt was not able to maintain static sitting without Mod A. . Pt not safe to return home at this time d/ t current level of functional ability. OT recommending short -term rehabilitation stay upon d/c from [facility] to decrease caregiver burden and maximize safety upon d/c. Pt would benefit from skilled OT while at [facility] to prevent further functional decline and maximize safety. Eval Complexity Eval Charge Codes 64836 - Moderate Complexity PHYSICIAN CERTIFICATION: I certify the specified therapy services for Gerardo Kay are required, authorized, and reviewed every 30 days.
[2024-04-14 11:45] LABS: POC Glucose,Bedside 113 (70-110)
--- NOTE | 2024-04-14 13:56 | P.DS_ITS ---
General Admission date:: 04/13/24 Discharge date: 04/14/24 HPI HPI HPI: Gerardo Kay is a 84-year-old male with a medical history significant for CAD s/p 6 stents, type 2 diabetes, BPH who presents from home after family called EMS for patient to be placed at a alf. Per patient and son who was on the phone, patient lives with his and grandson who are unable to take care of him as he is essentially bedbound at this time due to significant physical deconditioning. This has worsened over the past several months. Denies difficulty with urination, bowel movements. I spoke to son over the phone who really desires his dad to get short-term rehab and moving with him instead who is able to take care of him. Workup in the ED relatively unremarkable. Case discussed with ED provider and decision was made to admit patient for significant physical deconditioning and unable to take care of himself. Hospital Course Hospital Course Hospital Course: Gerardo Kay is a 84-year-old male with a medical history significant for CAD s/p 6 stents, type 2 diabetes, BPH who presents from home after family called EMS for patient to be placed at a alf. Per patient and son who was on the phone, patient lives with his and grandson who are unable to take care of him as he is essentially bedbound at this time due to significant physical deconditioning. This has worsened over the past several months. Denies difficulty with urination, bowel movements. I spoke to son over the phone who really desires his dad to get short-term rehab and moving with him instead who is able to take care of him. Workup in the ED relatively unremarkable. Case discussed with ED provider and decision was made to admit patient for significant physical deconditioning and unable to take care of himself. Evaluated by therapy. Patient would benefit from placement for skilled rehab. Graciously excepted by [facility]. Stable to discharge at this time. Problems addressed as follows: #Physical deconditioning ? This has worsened over the past several months per patient and son. No focal neurological deficits. Able to urinate, have bowel movements. Low suspicion for cauda equina syndrome. Discussion with family, son wishes patient to get short-term rehab then, then consider moving in with family who can help take care of him. Therapy evaluated. Recommend placement. Accepted by [facility]. Vitamin levels low normal. TSH normal. Working with therapy. Stable to discharge for rehab. Exam concerning for mild dementia. Chronic medical conditions: #CAD s/p 6 stents ? Resumed home aspirin, clopidogrel, atorvastatin, metoprolol tartrate. Resume Lasix 20 mg daily. #Type 2 diabetes #Peripheral neuropathy ? Hemoglobin A1c 6.7%. Continue metformin 1000 mg twice daily. Sliding scale insulin during admission. No indication for sliding scale on discharge. Resume home gabapentin twice daily. #BPH ? Resumed home tamsulosin. Total time spent on discharge 32 minutes in counseling, documentation, chart review, and direct care with patient. Exam Data for Last 24 hours Vital signs and Labs for Last 24 Hours: Temp Pulse Resp BP Pulse Ox O2 Del Method 98.4 F 82 17 145/91 H 93 L Room Air 04/14/24 08:00 04/14/24 08:00 04/14/24 08:00 04/14/24 08:00 04/14/24 08:00 04/14/24 11:00 Laboratory Results - last 24 hr 04/13/24 16:05: WBC 10.3, RBC 4.14 L, Hgb 14.0 L, Hct 40.8 L, MCV 98.6 H, MCH 33.8 H, MCHC 34.3, RDW 15.5, Plt Count 325, MPV 9.5, Neut % (Auto) 51.8, Lymph % (Auto) 38.9, [place] % (Auto) 6.4, Eos % (Auto) 2.0, Baso % (Auto) 0.7, Neut # (Auto) 5.3, Lymph # (Auto) 4.0, [place] # (Auto) 0.7, Eos # (Auto) 0.2, Baso # (Auto) 0.1, PT 12.5, INR 1.16 H, APTT 24.5, VBG pH 7.29 L, VBG pCO2 53.3 H, VBG pO2 34.3, VBG HCO3 25.3, VBG Total CO2 26.9, VBG O2 Saturation 59.2, VBG Base Excess -1.2, VBG Lactic Acid 3.3 H, Sodium 137, Potassium 4.0, Chloride 101, Carbon Dioxide 27, Anion Gap 13.0, BUN 11, Creatinine 0.70, Estimated Creat Clear 75, Estimated GFR 108, Est GFR ( Amer) 131, Glucose 140 H, Hemoglobin A1c 6.7 H, Calcium 9.4, Magnesium 1.4 L, Total Bilirubin 1.3, AST 31, ALT 29, Alkaline Phosphatase 88, Troponin I < 0.01, NT-Pro-B Natriuret Pep 1670 H, Total Protein 7.9, Albumin 4.5, Globulin 3.4 H, Albumin/Globulin Ratio 1.3, Triglycerides 154 H, Cholesterol 123 L, LDL Cholesterol Direct 65.47 L, VLDL Cholesterol 31, HDL Cholesterol 36 L, Cholesterol/HDL Ratio 3.4, Lipase 140, TSH 1.28, Thyroxine (T4) 9.5, Salicylates < 1.0 L, Plasma/Serum Alcohol < 10, Acetone Level None detected, HCV Ab MT w/Rflx PCR Qn Negative, HIV Ag/Ab Combo Qual Negative 04/13/24 16:18: Lactate 3.3 H 04/13/24 18:10: Urine Color Yellow, Urine Appearance Clear, Urine pH 6.0, Ur Specific [place] 1.025, Urine Protein Negative, Urine Glucose (UA) Negative, Urine Ketones Negative, Urine Blood Negative, Urine Nitrate Negative, Urine Bilirubin Negative, Urine Urobilinogen 1.0, Ur Leukocyte Esterase Negative, Urine RBC None, Urine WBC None, Ur Squamous Epith Cells None, Urine Bacteria Trace 04/13/24 19:54: Lactate 2.4 H, Troponin I < 0.01 04/13/24 22:04: Lactate 2.2 H, Troponin I 0.01, Folate 7.64 04/14/24 05:07: POC Glucose 161 H 04/14/24 05:57: WBC 7.1 D, RBC 3.49 L, Hgb 11.7 L D, Hct 34.3 L, MCV 98.3 H, MCH 33.5 H, MCHC 34.1, RDW 15.3, Plt Count 281, MPV 9.6, Neut % (Auto) 54.5, Lymph % (Auto) 32.8, [place] % (Auto) 7.7, Eos % (Auto) 4.1, Baso % (Auto) 0.8, Neut # (Auto) 3.9, Lymph # (Auto) 2.3, [place] # (Auto) 0.6, Eos # (Auto) 0.3, Baso # (Auto) 0.1, Sodium 136, Potassium 3.8, Chloride 103, Carbon Dioxide 24, Anion Gap 12.8, BUN 12, Creatinine 0.60 L, Estimated Creat Clear 72, Estimated GFR 129, Est GFR ( Amer) 156, Glucose 143 H, Calcium 8.5, Magnesium 2.5 H D, Total Bilirubin 1.2, AST 36, ALT 26, Alkaline Phosphatase 70, Total Protein 6.4, Albumin 3.6 D, Globulin 2.8, Albumin/Globulin Ratio 1.3, Vitamin B12 357 04/14/24 11:37: POC Glucose 113 H I & O for Last 24 hours: Intake & Output 04/11/24 04/12/24 04/13/24 04/14/24 23:59 23:59 23:59 23:59 Intake Total 220 / 220 Output Total 350 / 350 Balance -130 / -130 Weight 88.139 kg 88.859 kg Constitutional Constitutional: no acute distress, average body habitus, chronically ill appearing and cooperative *Routine HEENT Exam Head: Present normocephalic Eye: Present EOMI and PERRL ENT: Present mucous membranes moist *Routine Neck Exam Neck: Present supple; Absent lymphadenopathy *Routine Respiratory Exam Respiratory: Present CTA bilaterally; Absent rhonchi, wheezes or crackles *Routine Cardiovascular Exam Cardiovascular: Present RRR *Routine Abdominal Exam Abdominal: Present soft and normoactive bowel sounds; Absent tenderness *Routine Rectal Exam Patient deferred: visual exam *Routine Exam Patient deferred: penile exam *Routine Extremities Exam Extremities: Present edema (trace BLE); Absent cyanosis or clubbing *Routine Skin Exam Skin: Present warm; Absent rash *Routine Neurological Exam Neurological: Present alert and moving all extremities; Absent altered mental status Comments: Oriented to self and place Results Data Completed and Pending Labs on day of discharge: Labs from last 24 hours 04/14/24 04/14/24 04/14/24 11:37 05:57 05:07 WBC 7.1 D RBC 3.49 L Hgb 11.7 L D Hct 34.3 L MCV 98.3 H MCH 33.5 H MCHC 34.1 RDW 15.3 Plt Count 281 MPV 9.6 Neut % (Auto) 54.5 Lymph % (Auto) 32.8 [place] % (Auto) 7.7 Eos % (Auto) 4.1 Baso % (Auto) 0.8 Neut # (Auto) 3.9 Lymph # (Auto) 2.3 [place] # (Auto) 0.6 Eos # (Auto) 0.3 Baso # (Auto) 0.1 PT INR APTT VBG pH VBG pCO2 VBG pO2 VBG HCO3 VBG Total CO2 VBG O2 Saturation VBG Base Excess VBG Lactic Acid Sodium 136 Potassium 3.8 Chloride 103 Carbon Dioxide 24 Anion Gap 12.8 BUN 12 Creatinine 0.60 L Estimated Creat Clear 72 Estimated GFR 129 Est GFR ( Amer) 156 Glucose 143 H POC Glucose 113 H 161 H Hemoglobin A1c Lactate Calcium 8.5 Magnesium 2.5 H D Total Bilirubin 1.2 AST 36 ALT 26 Alkaline Phosphatase 70 Troponin I NT-Pro-B Natriuret Pep Total Protein 6.4 Albumin 3.6 D Globulin 2.8 Albumin/Globulin Ratio 1.3 Triglycerides Cholesterol LDL Cholesterol Direct VLDL Cholesterol HDL Cholesterol Cholesterol/HDL Ratio Lipase Vitamin B12 357 Folate TSH Thyroxine (T4) Urine Color Urine Appearance Urine pH Ur Specific [place] Urine Protein Urine Glucose (UA) Urine Ketones Urine Blood Urine Nitrate Urine Bilirubin Urine Urobilinogen Ur Leukocyte Esterase Urine RBC Urine WBC Ur Squamous Epith Cells Urine Bacteria Salicylates Plasma/Serum Alcohol Acetone Level HCV Ab MT w/Rflx PCR Qn HIV Ag/Ab Combo Qual 04/13/24 04/13/24 04/13/24 22:04 19:54 18:10 WBC RBC Hgb Hct MCV MCH MCHC RDW Plt Count MPV Neut % (Auto) Lymph % (Auto) [place] % (Auto) Eos % (Auto) Baso % (Auto) Neut # (Auto) Lymph # (Auto) [place] # (Auto) Eos # (Auto) Baso # (Auto) PT INR APTT VBG pH VBG pCO2 VBG pO2 VBG HCO3 VBG Total CO2 VBG O2 Saturation VBG Base Excess VBG Lactic Acid Sodium Potassium Chloride Carbon Dioxide Anion Gap BUN Creatinine Estimated Creat Clear Estimated GFR Est GFR ( Amer) Glucose POC Glucose Hemoglobin A1c Lactate 2.2 H 2.4 H Calcium Magnesium Total Bilirubin AST ALT Alkaline Phosphatase Troponin I 0.01 < 0.01 NT-Pro-B Natriuret Pep Total Protein Albumin Globulin Albumin/Globulin Ratio Triglycerides Cholesterol LDL Cholesterol Direct VLDL Cholesterol HDL Cholesterol Cholesterol/HDL Ratio Lipase Vitamin B12 Folate 7.64 TSH Thyroxine (T4) Urine Color Yellow Urine Appearance Clear Urine pH 6.0 Ur Specific [place] 1.025 Urine Protein Negative Urine Glucose (UA) Negative Urine Ketones Negative Urine Blood Negative Urine Nitrate Negative Urine Bilirubin Negative Urine Urobilinogen 1.0 Ur Leukocyte Esterase Negative Urine RBC None Urine WBC None Ur Squamous Epith Cells None Urine Bacteria Trace Salicylates Plasma/Serum Alcohol Acetone Level HCV Ab MT w/Rflx PCR Qn HIV Ag/Ab Combo Qual 04/13/24 04/13/24 16:18 16:05 WBC 10.3 RBC 4.14 L Hgb 14.0 L Hct 40.8 L MCV 98.6 H MCH 33.8 H MCHC 34.3 RDW 15.5 Plt Count 325 MPV 9.5 Neut % (Auto) 51.8 Lymph % (Auto) 38.9 [place] % (Auto) 6.4 Eos % (Auto) 2.0 Baso % (Auto) 0.7 Neut # (Auto) 5.3 Lymph # (Auto) 4.0 [place] # (Auto) 0.7 Eos # (Auto) 0.2 Baso # (Auto) 0.1 PT 12.5 INR 1.16 H APTT 24.5 VBG pH 7.29 L VBG pCO2 53.3 H VBG pO2 34.3 VBG HCO3 25.3 VBG Total CO2 26.9 VBG O2 Saturation 59.2 VBG Base Excess -1.2 VBG Lactic Acid 3.3 H Sodium 137 Potassium 4.0 Chloride 101 Carbon Dioxide 27 Anion Gap 13.0 BUN 11 Creatinine 0.70 Estimated Creat Clear 75 Estimated GFR 108 Est GFR ( Amer) 131 Glucose 140 H POC Glucose Hemoglobin A1c 6.7 H Lactate 3.3 H Calcium 9.4 Magnesium 1.4 L Total Bilirubin 1.3 AST 31 ALT 29 Alkaline Phosphatase 88 Troponin I < 0.01 NT-Pro-B Natriuret Pep 1670 H Total Protein 7.9 Albumin 4.5 Globulin 3.4 H Albumin/Globulin Ratio 1.3 Triglycerides 154 H Cholesterol 123 L LDL Cholesterol Direct 65.47 L VLDL Cholesterol 31 HDL Cholesterol 36 L Cholesterol/HDL Ratio 3.4 Lipase 140 Vitamin B12 Folate TSH 1.28 Thyroxine (T4) 9.5 Urine Color Urine Appearance Urine pH Ur Specific [place] Urine Protein Urine Glucose (UA) Urine Ketones Urine Blood Urine Nitrate Urine Bilirubin Urine Urobilinogen Ur Leukocyte Esterase Urine RBC Urine WBC Ur Squamous Epith Cells Urine Bacteria Salicylates < 1.0 L Plasma/Serum Alcohol < 10 Acetone Level None detected HCV Ab MT w/Rflx PCR Qn Negative HIV Ag/Ab Combo Qual Negative DS: Diagnosis Discharge Diagnosis (1) Physical deconditioning: Status: Acute Code(s): R53.81 - Other malaise (2) CAD (coronary artery disease): Status: Acute Code(s): I25.10 - Atherosclerotic heart disease of viejas coronary artery without angina pectoris (3) Type 2 diabetes mellitus: Status: Acute Code(s): E11.9 - Type 2 diabetes mellitus without complications (4) Peripheral neuropathy: Status: Acute Code(s): G62.9 - Polyneuropathy, unspecified (5) BPH (benign prostatic hyperplasia): Status: Acute Code(s): N40.0 - Benign prostatic hyperplasia without lower urinary tract symptoms (6) Dementia: Status: Acute Code(s): F03.90 - Unspecified dementia, unspecified severity, without behavioral disturbance, psychotic disturbance, mood disturbance, and anxiety Meds Home Medications and Allergies Home Medications ?Medication ?Instructions ?Recorded ?Confirmed ?Type atorvastatin 40 mg tablet 40 mg PO HS 30 days #30 tabs 04/14/24 Rx clopidogrel 75 mg tablet 75 mg PO DAILY 30 days #30 tabs 04/14/24 Rx duloxetine 60 mg capsule,delayed 60 mg PO DAILY 30 days #30 caps 04/14/24 Rx release furosemide 20 mg tablet (Lasix) 20 mg PO DAILY 30 days #30 tabs 04/14/24 Rx gabapentin 100 mg capsule 100 mg PO DAILY 30 days #30 caps 04/14/24 Rx gabapentin 300 mg capsule 300 mg PO HS 30 days #30 caps 04/14/24 Rx metformin 1,000 mg tablet 1,000 mg PO BID 30 days #0 tabs 04/14/24 04/13/24 Rx metoprolol succinate 50 mg 50 mg PO DAILY 30 days #0 tabs 04/14/24 04/14/24 Rx tablet,extended release 24 hr tamsulosin 0.4 mg capsule (Flomax) 0.4 mg PO HS 30 days #30 caps 04/14/24 Rx New Prescriptions to Start Prescriptions: Shiva Smith clopidogrel Mateo,Shiva duloxetine Shiva Galindo furosemide [Lasix] Shiva Galindo gabapentin Shiva Galindo gabapentin Shiva Galindo tamsulosin [Flomax] Shiva Galindo Allergies Allergy/AdvReac Type Severity Reaction Status Date / Time No Known Allergies Allergy Verified 04/13/24 15:49 Discharge Plan Disposition Patient Disposition: Xfer SNF Condition: Fair Discharge Order Discharge Orders: Discharge Order (Routine); Ordered 04/14/24 Ordered By: Shiva Galindo Follow up Plan Prescriptions/Medication Reconciliation: Continued atorvastatin 40 mg Tablet 40 mg PO HS 30 Days Qty: 30 0RF metoprolol succinate 50 mg tablet extended release 24 hr 50 mg PO DAILY 30 Days Qty: 0 0RF Patient Comments: TAKE ONE TABLET BY MOUTH EVERY DAY - NEEDS APPT clopidogrel 75 mg Tablet 75 mg PO DAILY 30 Days Qty: 30 0RF tamsulosin [Flomax] 0.4 mg Capsule 0.4 mg PO HS 30 Days Qty: 30 0RF metformin 1,000 mg Tablet 1,000 mg PO BID 30 Days Qty: 0 0RF gabapentin 300 mg capsule 300 mg PO HS 30 Days Qty: 30 0RF furosemide [Lasix] 20 mg Tablet 20 mg PO DAILY 30 Days Qty: 30 0RF gabapentin 100 mg Capsule 100 mg PO DAILY 30 Days Qty: 30 0RF duloxetine 60 mg Capsule,Delayed Release(Dr/Ec) 60 mg PO DAILY 30 Days Qty: 30 0RF Discontinued hydrocodone-acetaminophen 10-325 mg Tablet 1 tab PO Q6HP PRN (Reason: Moderate Pain (Scale Score 5-6)) Problem Reconciliation Problems Reviewed?: Yes Patient Discharge Instructions ACTIVITY: Continue current activity DIET: continue same diet Patient Instructions: DI for Fatigue, DI for Encephalopathy, Krnexfc-sj-Uxlyrd-Adult Print Language: Romanian Providers Primary Care Provider: Provider,Referral Admit Provider: Lloyd Rm Attending Provider: Lloyd Rm
[2024-04-14 16:00] VITALS: BP 123/87; PULSE 90; RESP 17; TEMP 36.6; O2SAT 93
--- NOTE | 2024-04-14 19:14 | PC.NURSE ---
patient is a/ox4, remains on RA. tolerating diet well. no c/o pain. awaiting EMS transfer to [facility] at this time.
== END 2024-04-14 19:40 ==
LOC: ER 18:23 → 2ND 18:36
PROVIDERS: Admitting Provider Student in an Organized Health Care Education/Training Program; Emergency Provider Emergency Medicine; Visit Provider Student in an Organized Health Care Education/Training Program
DX: R62.7 Adult failure to thrive (principal); I25.10 Atherosclerotic heart disease of native coronary artery without angina pectoris; N40.0 Benign prostatic hyperplasia without lower urinary tract symptoms; E11.42 Type 2 diabetes mellitus with diabetic polyneuropathy; E78.5 Hyperlipidemia, unspecified; L89.151 Pressure ulcer of sacral region, stage 1; R29.700 NIHSS score 0; Z68.28 Body mass index [BMI] 28.0-28.9, adult; I10 Essential (primary) hypertension; F03.A0 Unspecified dementia, mild, without behavioral disturbance, psychotic disturbance, mood disturbance, and anxiety; Z79.899 Other long term (current) drug therapy; Z79.01 Long term (current) use of anticoagulants; Z79.84 Long term (current) use of oral hypoglycemic drugs; Z79.82 Long term (current) use of aspirin; Z74.1 Need for assistance with personal care; Z95.5 Presence of coronary angioplasty implant and graft
CPT/HCPCS: 36415; 70450; 71045; 80053; 80061; 80320; 80329; 81001; 82009; 82607; 82746; 82803; 82962; 83036; 83605; 83690; 83735; 83880; 84436; 84443; 84484; 85025; 85610; 85730; 86803; 87040; 87389; 93005; 97110; 97163; 97166; 99285; G0378; G0480; J1650; J3475; J7120

== ENCOUNTER 2024-04-17 16:46 | Emergency (ER) | payer MEDICARE, MEDICAID, SELFPAY ==
--- NOTE | 2024-04-17 16:45 | CT_ITS ---
PROCEDURE INFORMATION: Exam: CTA Head With Contrast, Arteriography Exam date and time: 04/17/2024 4:51 PM Age: 84 years old Clinical indication: Stroke-like symptoms; Other: Stroke symptoms; Additional info: Possible stroke TECHNIQUE: Imaging protocol: Computed tomographic angiography of the head with contrast. Exam focused on the arteries. 3D rendering (Not supervised by radiologist): MIP and/or 3D reconstructed images were created by the technologist. Radiation optimization: All CT scans at this facility use at least one of these dose optimization techniques: automated exposure control; mA and/or kV adjustment per patient size (includes targeted exams where dose is matched to clinical indication); or iterative reconstruction. Contrast material: ISO 370; Contrast volume: 80 ml; Contrast route: INTRAVENOUS (IV); COMPARISON: 1. CT HEAD/BRAIN WO CON 04/13/2024 4:[address] HEAD/BRAIN WO CON 04/17/2024 4:49 PM FINDINGS: ANTERIOR CIRCULATION: Right internal carotid artery: Atherosclerosis of the right internal carotid artery, without significant stenosis or occlusion. No visualized intracranial aneurysm. Right middle cerebral artery: Decreased enhancement/flow is visualized within an M3 segment of the right MCA. Right anterior cerebral artery: No occlusion or significant stenosis. No aneurysm. Left internal carotid artery: Atherosclerosis of the left internal carotid artery, with mild stenoses. Left middle cerebral artery: Mild stenosis involving an M2 segment left MCA. Stenosis is also noted of an M3 segment. Decreased enhancement/flow is visualized within an M3 segment of the left MCA. Left anterior cerebral artery: Mild stenosis of the A3 segment of the left YAZ. POSTERIOR CIRCULATION: Right vertebral artery: There is significant decreased enhancement/flow involving the V4 segment of the right vertebral artery. Stenoses up to severe in degree are also visualized of the V4 segment, with atherosclerosis. Left vertebral artery: The left vertebral artery is small in caliber. Mild atherosclerosis is seen of the V4 segment. There is nonvisualization of flow within the left vertebral artery distal to the PICA, consistent with occlusion. Basilar artery: There is severely decreased flow or occlusion of the proximal basilar artery. Severe stenosis is visualized of the mid basilar artery. Right posterior cerebral artery: Stenoses up to severe in degree are visualized of a P3 segment of the right [employer] PROF[employer]OR. There is a focus of nonvisualized flow involving the P3 segment consistent with severe stenosis or occlusion. There is persistence of the origin of the right [employer]. Left posterior cerebral artery: Persistence of the origin of the left [employer], without significant stenosis or occlusion. Veins: Evaluation of dural venous sinuses is limited by suboptimal dural venous enhancement. Brain: A hypodense lacunar infarct is visualized within the right side of the jairo, indeterminate acuity. This is new compared to the previous CT from 04/13/2024. An acute or subacute lacunar infarct is considered. Refer to the head CT report from the same day. Cerebral ventricles: Moderate ventriculomegaly. Refer to the head CT report from the same day. Bones/joints: No acute fracture. Refer to the head CT report from the same day. Soft tissues: Unremarkable. Other findings: Stenoses are visualized of the left PICA, which are up to severe in degree. There is poor visualization of the right PICA, and patency cannot be confirmed. IMPRESSION: 1. A hypodense lacunar infarct is visualized within the right side of the jairo, indeterminate acuity. This is new compared to the previous CT from 04/13/2024. An acute or subacute lacunar infarct is considered. Correlation with MRI recommended, as clinically indicated. 2. The left vertebral artery is small in caliber. Mild atherosclerosis is seen of the V4 segment. There is nonvisualization of flow within the left vertebral artery distal to the PICA, consistent with occlusion. 3. There is severely decreased flow or occlusion of the proximal basilar artery. Severe stenosis is visualized of the mid basilar artery. 4. There is significant decreased enhancement/flow involving the V4 segment of the right vertebral artery. Stenoses up to severe in degree are also visualized of the V4 segment. 5. Stenoses up to severe in degree are visualized of a P3 segment of the right [employer]OR. There is a focus of nonvisualized flow involving the P3 segment consistent with severe stenosis or occlusion. 6. Stenoses are visualized of the left PICA, which are up to severe in degree. There is poor visualization of the right PICA, and patency cannot be confirmed. 7. Atherosclerosis of the left internal carotid artery, with mild stenoses. 8. Mild stenosis of the A3 segment of the left YAZ. 9. Mild stenosis involving an M2 segment left MCA. Stenosis is also noted of an M3 segment. Decreased enhancement/flow is visualized within an M3 segment of the left MCA. 10. Decreased enhancement/flow is visualized within an M3 segment of the right MCA. 11. Additional findings described above.
--- NOTE | 2024-04-17 16:45 | CT_ITS ---
PROCEDURE INFORMATION: Exam: CT Head Without Contrast Exam date and time: 04/17/2024 4:49 PM Age: 84 years old Clinical indication: Stroke-like symptoms; Lt upper extremity weakness; Additional info: Possible stroke TECHNIQUE: Imaging protocol: Computed tomography of the head without contrast. Radiation optimization: All CT scans at this facility use at least one of these dose optimization techniques: automated exposure control; mA and/or kV adjustment per patient size (includes targeted exams where dose is matched to clinical indication); or iterative reconstruction. Other technique: STROKE PROTOCOL was implemented. COMPARISON: CT HEAD/BRAIN WO CON 04/13/2024 4:25 PM FINDINGS: Brain: Encephalomalacia/gliosis is visualized within the right occipital lobe, consistent with an old infarct. This is stable. A few stable lacunar infarcts are visualized within the cerebellum. Hypodense lacunar infarcts are visualized within the bilateral basal ganglia and right agrawal radiata, which are nonacute and stable compared to the previous CT. No acute intracranial hemorrhage is visualized. The pedroza-white differentiation is otherwise preserved demonstrating no acute territorial type infarct. There is extensive cerebral white matter hypodensity, likely representing small vessel ischemic disease in a patient this age. The acuity of the white matter disease is indeterminate. There is no significant midline shift. Cerebral ventricles: Moderate stable ventriculomegaly is visualized. The ventricles are dilated out of proportion to the mild sulcal atrophy, and normal pressure hydrocephalus cannot be excluded. Paranasal sinuses: Mild mucosal thickening/effusion visualized within the left frontal sinus. There is mucosal thickening of a left anterior ethmoid air cell. Mastoid air cells: No mastoid effusion. Orbital cavities: Bilateral orbital lens implants. Bones: Hypertrophic arthropathy is visualized at the atlanto-axial joint. The calvarium demonstrates no evidence for a depressed fracture. Within the right posterior parietal calvarium, there is a 5 mm nonspecific hypodense lesion, stable compared to the prior CT. Soft tissues: Unremarkable. Vasculature: Intracranial atherosclerosis visualized. IMPRESSION: 1. No acute intracranial hemorrhage or acute territorial type infarct. 2. Encephalomalacia/gliosis is visualized within the right occipital lobe, consistent with an old infarct. This is stable. A few stable lacunar infarcts are visualized within the cerebellum. 3. Moderate stable ventriculomegaly is visualized. The ventricles are dilated out of proportion to the mild sulcal atrophy, and normal pressure hydrocephalus cannot be excluded. 4. Hypodense lacunar infarcts are visualized within the bilateral basal ganglia and right agrawal radiata, which are nonacute and stable compared to the previous CT. 5. There is extensive cerebral white matter hypodensity, likely representing small vessel ischemic disease in a patient this age. 6. Paranasal sinus disease. 7. If further evaluation is clinically indicated, an MRI of the brain is recommended. ASSESSMENT: [place] Stroke Program Early CT Score (ASPECTS) = 10
--- NOTE | 2024-04-17 16:45 | CT_ITS ---
PROCEDURE INFORMATION: Exam: CTA Neck With Contrast Exam date and time: 04/17/2024 4:51 PM Age: 84 years old Clinical indication: Stroke-like symptoms; Other: Possible stroke TECHNIQUE: Imaging protocol: Computed tomographic angiography of the neck with contrast. Exam focused on the cervical segments of the vasculature. 3D rendering (Not supervised by radiologist): MIP and/or 3D reconstructed images were created by the technologist. Radiation optimization: All CT scans at this facility use at least one of these dose optimization techniques: automated exposure control; mA and/or kV adjustment per patient size (includes targeted exams where dose is matched to clinical indication); or iterative reconstruction. Contrast material: ISO 370; Contrast volume: 80 ml; Contrast route: INTRAVENOUS (IV); COMPARISON: CT ANGIO HEAD 04/17/2024 4:51 PM FINDINGS: Right common carotid artery: Artifact limits evaluation of the proximal right common carotid artery, without occlusion. No significant stenosis or occlusion of the remaining right common carotid artery. Atherosclerosis is visualized of the right carotid bifurcation. Right internal carotid artery: There is increased tortuosity of the right internal carotid artery. Atherosclerosis and less than 50% stenosis is visualized of the proximal right internal carotid artery. Right external carotid artery: Severe stenosis of the proximal right external carotid artery. Atherosclerosis. Left common carotid artery: Increased tortuosity of the left common carotid artery. Atherosclerotic changes are seen distally, without significant stenosis. Left internal carotid artery: Atherosclerosis and less than 50% stenosis of the proximal left internal carotid artery. Additional atherosclerosis is seen of the distal left cervical internal carotid artery. Left external carotid artery: No occlusion or significant stenosis. Right vertebral artery: Critical stenosis is identified at the origin of the right vertebral artery, with atherosclerosis and noncalcified plaque. There is decreased enhancement/flow within the right vertebral artery. Left vertebral artery: The left vertebral artery is small in caliber, without extracranial occlusion. There is mild atherosclerosis of the V3 segment. Right subclavian artery: Artifact limits evaluation of the right subclavian artery, without occlusion. Atherosclerosis is seen. Left subclavian artery: Mild stenosis of the left subclavian artery. Atherosclerotic changes. Aorta: Atherosclerosis of the aortic arch is visualized. Artifact limits evaluation of the ascending aorta. Pulmonary arteries: Evaluation of pulmonary arteries is technically limited. Pharynx: There is mild prominence of the bilateral lingual tonsils. Lymph nodes: Scattered nonspecific cervical lymph nodes are visualized. Soft tissues: No significant soft tissue swelling. Bones/joints: Degenerative changes are visualized involving the cervical and upper thoracic spine. Varying degrees of spinal canal stenoses and neural foraminal narrowing are visualized at cervical levels. Artifact limits evaluation of the spinal canal. Anterior bridging osteophytes/hyperostosis is visualized of the thoracic spine. A small central protrusion is identified at C3-C4, with mild spinal canal stenosis. Lungs: Scattered calcified nodule/granuloma is are identified within the lungs bilaterally. Within the left lung on series 7, image 41, there is a 5-6 mm noncalcified nodule. Other findings: Thin axial CT imaging of the neck is included on the CTA head study from the same day. IMPRESSION: 1. Critical stenosis is identified at the origin of the right vertebral artery. There is decreased enhancement/flow within the right vertebral artery. 2. Severe stenosis of the proximal right external carotid artery. 3. Atherosclerosis and less than 50% stenosis of the proximal left internal carotid artery. 4. Mild stenosis of the left subclavian artery. 5. Within the left lung, there is a 5-6 mm noncalcified nodule. For patients at low risk (minimal or absent history of smoking and of other known risk factors), no routine follow-up is indicated. For patients at high risk (history of smoking or of other known risk factors), consider optional CT Chest at 12 months. (Reference: Brandi) 6. Additional findings described above. REFERENCES: 1. Brandi Cota, et al. Guidelines for Management of Incidental Pulmonary Nodules Detected on CT Images: From the Fleischner Society 2017. Radiology. 2017;284(1):228-243. 2. NASCET CRITERIA. The degree of stenosis in the cervical segment of the internal carotid artery is based on NASCET criteria. Normal is no stenosis. Mild is less than 50% stenosis. Moderate is 50-69% stenosis. Severe is 70% to 99% stenosis. Total occlusion is no detectable patent lumen.
--- NOTE | 2024-04-17 16:48 | PC.NURSE ---
pt straight to ct scanner from EMS
[2024-04-17] MEDS: 0.9 % SODIUM CHLORIDE 50 ML VIAL IV (16:51)
[2024-04-17] MEDS: SODIUM CHLORIDE 0.9% 10ML SYR (RAD ONLY) 10 ML IV (16:51)
[2024-04-17] MEDS: IOPAMIDOL-370 (76%);100ML BOTTLE 80 ML IV (16:51)
--- NOTE | 2024-04-17 17:05 | HMH.EDGENADL ---
Discharge Plan Disposition Patient Disposition: Xfer Short-Term Hosp Condition: Critical Prescriptions Prescriptions: No Action atorvastatin 40 mg Tablet 40 mg PO HS 30 Days Qty: 30 0RF metoprolol succinate 50 mg tablet extended release 24 hr 50 mg PO DAILY 30 Days Qty: 0 0RF Patient Comments: TAKE ONE TABLET BY MOUTH EVERY DAY - NEEDS APPT clopidogrel 75 mg Tablet 75 mg PO DAILY 30 Days Qty: 30 0RF tamsulosin [Flomax] 0.4 mg Capsule 0.4 mg PO HS 30 Days Qty: 30 0RF metformin 1,000 mg Tablet 1,000 mg PO BID 30 Days Qty: 0 0RF gabapentin 300 mg capsule 300 mg PO HS 30 Days Qty: 30 0RF furosemide [Lasix] 20 mg Tablet 20 mg PO DAILY 30 Days Qty: 30 0RF gabapentin 100 mg Capsule 100 mg PO DAILY 30 Days Qty: 30 0RF duloxetine 60 mg Capsule,Delayed Release(Dr/Ec) 60 mg PO DAILY 30 Days Qty: 30 0RF Referrals Follow up/Referrals: Provider,Referral, MD [Referring] - See instructions Activity Restrictions/Add. 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 He ultimately was discharged to [facility] this week. He was noted to be acutely altered today with left-sided deficits. EMS states that his symptoms began approximately 30 minutes prior to their arrival here which gives an hour and a half time. On arrival patient is awake alert with a GCS of 15 however he has primarily left-sided deficits. He denies chest pain fever chills hemoptysis hematochezia melena nausea vomit diarrhea. He has no specific complaints other than weakness on his left side Related Data Previous Rx's ?Medication ?Instructions ?Recorded atorvastatin 40 mg tablet 40 mg PO HS 30 days #30 tabs 04/14/24 clopidogrel 75 mg tablet 75 mg PO DAILY 30 days #30 tabs 04/14/24 duloxetine 60 mg capsule,delayed 60 mg PO DAILY 30 days #30 caps 04/14/24 release furosemide 20 mg tablet (Lasix) 20 mg PO DAILY 30 days #30 tabs 04/14/24 gabapentin 100 mg capsule 100 mg PO DAILY 30 days #30 caps 04/14/24 gabapentin 300 mg capsule 300 mg PO HS 30 days #30 caps 04/14/24 metformin 1,000 mg tablet 1,000 mg PO BID 30 days #0 tabs 04/14/24 metoprolol succinate 50 mg 50 mg PO DAILY 30 days #0 tabs 04/14/24 tablet,extended release 24 hr tamsulosin 0.4 mg capsule (Flomax) 0.4 mg PO HS 30 days #30 caps 04/14/24 Allergies Allergy/AdvReac Type Severity Reaction Status Date / Time No Known Allergies Allergy Verified 04/13/24 15:49 [facility] <LIVIA Templeton - Last Filed: 04/17/24 17:36> [facility] Disclaimer: The information contained in this section may have been updated after the patient was seen, as this information can be updated by other users. Social History (Updated 04/13/24 @ 17:58 by Rancho South MD) Smoking Status: Unknown if ever smoked alcohol intake: never current occupational status: retired Travel in the last 8 weeks: None Have you lived/traveled outside US in past 30 days?: No Contact w/someone who lives/traveled outside US past 30 days?: No Exposure to someone with infectious disease in past 14 days?: No Do you have a fever (greater than 100.4 F or 38 C)?: No Have you tested positive for COVID-19: No Exposed to someone with COVID-19 in past 14 days?: No Do you have a sore throat?: No Do you have a cough?: No Do you have any weakness?: No Do you have any diarrhea?: No Are you experiencing any unusual bleeding?: No Do you have any muscle aches/pain?: No Do you have any abdominal pain?: No Are you experiencing loss of taste or smell?: No Other Medical History Have you received the Flu Vaccine for this season: No Have you received the Pneumonia Vaccine: No <LIVIA Templeton - Last Filed: 04/17/24 17:36> ROS Obtained: Yes Systems reviewed as appropriate & no additional complaints except as documented Physical Exam <LIVIA Templeton - Last Filed: 04/17/24 17:36> General General appearance: alert and in no apparent distress Respiratory Respiratory exam: Present normal lung sounds bilaterally Cardiovascular Cardiovascular exam: Present regular rate Neurological Exam Neurological exam: Present alert and oriented X3 Skin Skin exam: Present dry Medical Decision Making <LIVIA Templeton - Last Filed: 04/17/24 17:36> Medical Records Medical records reviewed: Yes I reviewed the patient's medical records. Screening: Per USPSTF and CDC recommendations, given the prevalence of disease in our region, it is our hospital?s policy to screen for HIV and viral Hepatitis for all patients aged 18 and over and those with ongoing risk factors. Ang Inquiry Pt receiving controlled substance: No Vital Signs: 04/17/24 17:20 Temperature 98.0 F Temperature Source Oral Pulse Rate [Right Brachial] 74 Respiratory Rate 20 Blood Pressure [Left Arm] 141/84 H Blood Pressure Mean [Left Arm] 103 Blood Pressure Source [Left Arm] Automatic Cuff Blood Pressure Position [Left Arm] Sitting 02 Sat by Pulse Oximetry 97 Oxygen Delivery Method Nasal Cannula Oxygen Flow Rate (LPM) 2 Lab Data Lab results reviewed: Yes I reviewed the patient's lab results. Lab Results 04/17/24 17:00: WBC 8.2, RBC 3.34 L, Hgb 11.4 L, Hct 33.3 L, MCV 99.7 H, MCH 34.1 H, MCHC 34.2, RDW 15.4, Plt Count 279, MPV 9.2, Neut % (Auto) 61.1, Lymph % (Auto) 29.6, [place] % (Auto) 6.6, Eos % (Auto) 2.0, Baso % (Auto) 0.5, Neut # (Auto) 5.0, Lymph # (Auto) 2.4, [place] # (Auto) 0.5, Eos # (Auto) 0.2, Baso # (Auto) 0.0, Sodium 136, Potassium 4.1, Chloride 100, Albumin 3.4 L 04/17/24 17:00 04/17/24 17:00 Orders (Tests/Meds): ED MEDICATIONS Discontinued Medications Generic Name Dose Route Start Last Admin Trade Name Ashlyn PRN Reason Stop Dose Admin Iopamidol 80 ml 04/17/24 16:50 04/17/24 16:51 Iopamidol-370 (76%);100ml Bottle IV 04/17/24 16:51 80 ml ONCE ONE Administration Sodium Chloride 10 ml 04/17/24 16:50 04/17/24 16:51 Sodium Chloride 0.9% 10ml Syr (Rad Only) IV 04/17/24 16:51 10 ml ONCE ONE Administration Sodium Chloride 50 ml 04/17/24 16:50 04/17/24 16:51 0.9 % Sodium Chloride 50 Ml Vial IV 04/17/24 16:51 50 ml ONCE ONE Administration ORDERS Category Date Time Status CT angio head Stat Cat Scan 04/17/24 16:[address] angio neck Stat Cat Scan 04/17/24 16:[address] head/brain wo con Stat Cat Scan 04/17/24 16:45 Completed Activated Partial Thrombo Time Stat Lab 04/17/24 17:00 Received Complete Blood Count Auto Diff Stat Lab 04/17/24 17:00 Completed Comprehensive Metabolic Panel Stat Lab 04/17/24 17:00 Results Drug Screen,Urine Stat Lab 04/17/24 17:23 Received Ethyl Alcohol Stat Lab 04/17/24 17:00 Received Lipid Panel Stat Lab 04/17/24 17:00 Results Prothrombin Time INR Stat Lab 04/17/24 17:00 Received Troponin I Q3H Lab 04/17/24 19:45 Ordered Troponin I Q3H Lab 04/17/24 22:45 Ordered Troponin I Stat Lab 04/17/24 17:00 Results Urinalysis and Microscopic Stat Lab 04/17/24 17:23 Received ECG Request Stat Y 04/17/24 16:45 Ordered Medical Decision Narrative: In summary patient is a 84-year-old male who presents to the emergency department for evaluation of strokelike symptoms. Patient is initially normotensive at 141/84 pulse 74 respiratory rate 22 sat 97% on room air upon arrival, afebrile at 98.0. Physical exam shows patient's Javier Coma Score 15 however he has significant left-sided deficits including left-sided facial droop left upper extremity weakness dysarthria. Differential diagnosis includes stroke versus bleed. Initial workup will be conducted with stroke alert protocol. At baseline patient is on maximum medical therapy for cardiovascular disease including statin aspirin and Plavix and review of his record shows that he does have evidence of previous right-sided stroke. My NIH stroke score is 8 on my initial evaluation. Stroke alert shows he has no acute findings and his CT scan without contrast however patient has large vessel occlusion evident on CTAs of the head and neck. Thus we had interactive discussion with the [facility] about patient management and he will be excepted for further evaluation and care for thrombectomy. <Irma Muñoz, DO - Last Filed: 04/17/24 17:47> Vital Signs: 04/17/24 17:20 Temperature 98.0 F Temperature Source Oral Pulse Rate [Right Brachial] 74 Respiratory Rate 20 Blood Pressure [Left Arm] 141/84 H Blood Pressure Mean [Left Arm] 103 Blood Pressure Source [Left Arm] Automatic Cuff Blood Pressure Position [Left Arm] Sitting 02 Sat by Pulse Oximetry 97 Oxygen Delivery Method Nasal Cannula Oxygen Flow Rate (LPM) 2 Lab Data Lab Results 04/17/24 17:00: WBC 8.2, RBC 3.34 L, Hgb 11.4 L, Hct 33.3 L, MCV 99.7 H, MCH 34.1 H, MCHC 34.2, RDW 15.4, Plt Count 279, MPV 9.2, Neut % (Auto) 61.1, Lymph % (Auto) 29.6, [place] % (Auto) 6.6, Eos % (Auto) 2.0, Baso % (Auto) 0.5, Neut # (Auto) 5.0, Lymph # (Auto) 2.4, [place] # (Auto) 0.5, Eos # (Auto) 0.2, Baso # (Auto) 0.0, Sodium 136, Potassium 4.1, Chloride 100, Albumin 3.4 L Orders (Tests/Meds): ED MEDICATIONS Discontinued Medications Generic Name Dose Route Start Last Admin Trade Name Freq PRN Reason Stop Dose Admin Iopamidol 80 ml 04/17/24 16:50 04/17/24 16:51 Iopamidol-370 (76%);100ml Bottle IV 04/17/24 16:51 80 ml ONCE ONE Administration Sodium Chloride 10 ml 04/17/24 16:50 04/17/24 16:51 Sodium Chloride 0.9% 10ml Syr (Rad Only) IV 04/17/24 16:51 10 ml ONCE ONE Administration Sodium Chloride 50 ml 04/17/24 16:50 04/17/24 16:51 0.9 % Sodium Chloride 50 Ml Vial IV 04/17/24 16:51 50 ml ONCE ONE Administration ORDERS Category Date Time Status CT angio head Stat Cat Scan 04/17/24 16:[address] angio neck Stat Cat Scan 04/17/24 16:[address] head/brain wo con Stat Cat Scan 04/17/24 16:45 Completed Activated Partial Thrombo Time Stat Lab 04/17/24 17:00 Received Complete Blood Count Auto Diff Stat Lab 04/17/24 17:00 Completed Comprehensive Metabolic Panel Stat Lab 04/17/24 17:00 Results Drug Screen,Urine Stat Lab 04/17/24 17:23 Received Ethyl Alcohol Stat Lab 04/17/24 17:00 Received Lipid Panel Stat Lab 04/17/24 17:00 Results Prothrombin Time INR Stat Lab 04/17/24 17:00 Received Troponin I Q3H Lab 04/17/24 19:45 Ordered Troponin I Q3H Lab 04/17/24 22:45 Ordered Troponin I Stat Lab 04/17/24 17:00 Results Urinalysis and Microscopic Stat Lab 04/17/24 17:23 Received ECG Request Stat Y 04/17/24 16:45 Ordered Medical Decision Narrative: In summary patient is a 84-year-old male who presents to the emergency department for evaluation of strokelike symptoms. Patient is initially normotensive at 141/84 pulse 74 respiratory rate 22 sat 97% on room air upon arrival, afebrile at 98.0. Physical exam shows patient's Javier Coma Score 15 however he has significant left-sided deficits including left-sided facial droop left upper extremity weakness dysarthria. Differential diagnosis includes stroke versus bleed. Initial workup will be conducted with stroke alert protocol. At baseline patient is on maximum medical therapy for cardiovascular disease including statin aspirin and Plavix and review of his record shows that he does have evidence of previous right-sided stroke. My NIH stroke score is 8 on my initial evaluation. Stroke alert shows he has no acute findings and his CT scan without contrast however patient has large vessel occlusion evident on CTAs of the head and neck. Thus we had interactive discussion with the [facility] transfer center about patient management and he will be excepted for further evaluation and care for thrombectomy. DO Toni: I was consulted by the [facility], and we discussed the complexity of the problems being addressed. I personally performed the critical care in this case. I approved the treatment and management plan for this patient's care in the emergency department, thus performing a substantive portion of the medical decision making. Patient presents as a stroke alert with concern for last known well 1445. According to report, nursing facility noted the patient was normal at 1445 but then found him later on with new left-sided deficits. He typically reportedly does not have focal deficits according to nursing facility as well as according to his recent discharge from the hospital. He was admitted 04/13/2024 for deconditioning and was discharged to halfway facility 04/14 for PT/OT. Prior to admission here, he was at home and cared for himself. Patient has an NIH stroke scale of 8 for left-sided deficits, including flattening of the nasolabial fold, left upper extremity weakness, dysarthria. I had interactive discussion with the radiologist and also shared imaging to [facility] through [employer]. summer and had discussion with Dr. Barrow. Radiologist noted concerns for multiple vessel stenosis/occlusion, and [facility] is concern for possible thrombosis in the mid basilar artery. They recommended transfer to for potential thrombectomy at 1734. Given this, we did call for flight crew to help arrange and expedite emergent transfer. I considered administering thrombolytics given that the patient is within window, however he has a history of multiple prior strokes and I do not have any baseline CTA imaging for comparison to know whether or not these findings are chronic, and I feel the risk might outweigh the benefit at this time, especially given his age. I waited to discuss this with neurology first. I spoke with Dr. Waldrop at who advised go ahead and start TNK. This was ordered at 1745 without obvious exclusion criteria. He is on ASA and plavix with no known coagulopathy, blood pressure controlled. His vitals are currently stable and I feel he is stable and safe for transfer. Irma Muñoz DO Critical Care <LIVIA Templeton - Last Filed: 04/17/24 17:36> Critical Care Time Critical Care Time: Yes Attestation: On 04/17/24, the high probability of a clinically significant, sudden or life threatening deterioration of the following system(s) required my full and direct attention, intervention and personal management. The time I documented below is in addition to time spent performing reported procedures but includes the following listed in this critical care notation. Total Time Total Critical Care Time: 35 <Irma Muñoz DO - Last Filed: 04/17/24 17:47> Total Time Total Critical Care Time: 45
--- NOTE | 2024-04-17 17:07 | ECG_ITS ---
APPROVED REPORT Exam: Resting ECG HR:96 bpm ECG Measurements Heart Rate 96 AXES QRSd 117 QRS -34 QT 369 T 29 QTc 422 Conclusion Sinus rhythm with a ventricular rate of 96 bpm. Some artifact degrades the study. PVC noted. Nonspecific ST changes but no STEMI. Electronically signed by : BARBARA DENISE, 04/17/2024 23:56:29
[2024-04-17 17:15] LABS: Basophils % 0.5 % (0.1-2.0); Eosinophils # 0.2 K/mm3 (0.0-0.4); Hematocrit 33.3 % (42.0-52.0); Hemoglobin 11.4 g/dL (14.1-18.0); Lymphocytes # 2.4 K/mm3 (0.7-4.5); Lymphocytes % 29.6 % (10-50); Mean Corpuscular HGB Conc 34.2 g/dL (31.8-35.4); Mean Corpuscular Hemoglobin 34.1 pg (27.0-31.2); Mean Corpuscular Volume 99.7 fl (80-94); Mean Platelet Volume 9.2 fl (7.4-10.4); Monocytes # 0.5 K/mm3 (0.1-1.0); Monocytes % 6.6 % (1.7-9.3); Neutrophils % 61.1 % (37.0-80.0); Platelet Count 279 K/mm3 (142-424); Red Blood Count 3.34 M/mm3 (4.60-6.20); Red Cell Distribution Width 15.4 % (11.5-17.5); White Blood Count 8.2 K/mm3 (4.8-10.8)
[2024-04-17 17:20] VITALS: BP 141/84; PULSE 74; RESP 20; TEMP 36.7; O2SAT 97; BMI 31.1
[2024-04-17 17:28] LABS: Microscopic, Urine URINE MICROSCOPIC (MICROSCOPIC)
[2024-04-17 17:28] LABS: Albumin Level 3.4 g/dl (3.5-5.0); Chloride 100 mmol/L (98-107); Potassium 4.1 mmoL/L (3.5-5.1); Sodium 136 mmol/L (136-145)
[2024-04-17 17:30] VITALS: BP 149/82; PULSE 97; O2SAT 98
[2024-04-17 17:30] LABS: Activated Partial Thrombo Time 23.4 seconds (22.5-28.5); Blood Urea Nitrogen 15 mg/dl (9-20); Creatinine Clearance Estimated 84 mL/min (50-200); Estimated Glomerular Filt Rate 129 ml/min (>60); GFR (African American) 156 ML/MIN (>60); INR 1.21 (0.9-1.1); Prothrombin Time 13.1 seconds (9.2-12.1)
[2024-04-17 17:31] LABS: Alanine Aminotransferase 25 U/L (12-78); Albumin/Globulin Ratio 1.2 (1.1-1.8); Alkaline Phosphatase 72 U/L (38-126); Anion Gap 13.1 mEq/L (5-15); Aspartate Amino Transferase 25 U/L (17-59); Bilirubin,Total 0.8 mg/dl (0.2-1.3); Calcium 8.4 mg/dl (8.4-10.2); Carbon Dioxide 27 mmol/L (22.0-30.0); Cholesterol 79 mg/dl (140-200); Globulin 2.9 g/dL (1.3-3.2); Glucose 123 mg/dl (74-100); HDL Cholesterol 20 mg/dl (40-60); Total Protein,Serum 6.3 g/dl (6.3-8.2); Triglycerides 80 mg/dl (30-150); VLDL Cholesterol 16 mg/dL (0-40)
[2024-04-17 17:42] LABS: Direct LDL Cholesterol 40.67 mg/dL (100-129)
--- NOTE | 2024-04-17 17:45 | PC.NURSE ---
[facility] ACCEPTED PT ETA 28 MINUTES
[2024-04-17 17:48] LABS: Troponin I < 0.01 ng/ml (0.00-0.034)
--- NOTE | 2024-04-17 17:50 | PC.NURSE ---
Called [facility] to confirm dosing for TNK with [facility]. TNK consult dosing was placed and Gema is placing TNK order in MAY.
[2024-04-17 17:51] LABS: Appearance,Urine CLEAR (Clear); Bilirubin,Urine Negative (Negative); Blood, Urine Negative (Negative); Color,Urine YELLOW (Yellow); Glucose,Urine (UA) Negative (Negative); Ketones,Urine Negative (Negative); Leukocyte Esterase,Urine Negative (Negative); Nitrate,Urine Negative (Negative); Protein,Urine Negative (Negative); Specific Gravity, Urine 1.025 (1.005-1.030); Urobilinogen,Urine 0.2 EU/dl (0.2)
[2024-04-17] MEDS: TENECTEPLASE 50MG VIAL 25 MG IV (17:53)
[2024-04-17 18:00] VITALS: BP 147/85; PULSE 95; O2SAT 98
[2024-04-17 18:05] LABS: Opiate Screen,Urine Negative ng/ml (<300)
[2024-04-17 18:06] LABS: Bacteria,Urine Trace /lpf; Phencyclidine Screen,Urine Negative ng/ml (<25); RBC,Urine 20-50 #/hpf (0-3); Squamous Epithelial Cell,Urine Occasional #/hpf (0-5)
[2024-04-17 18:11] LABS: Amphetamine/Metha Screen,Urine Negative ng/ml (<1000)
[2024-04-17 18:12] LABS: Barbiturates Screen,Urine Negative ng/ml (<200); Benzodiazepines Screen,Urine Negative ng/ml (<200)
[2024-04-17 18:13] LABS: Cannabinoid Screen,Urine Negative ng/ml (<50)
[2024-04-17 18:14] LABS: Cocaine Screen,Urine Negative ng/ml (<300); Methadone Screen,Urine Negative ng/ml (<300)
[2024-04-17 18:18] LABS: Ethyl Alcohol < 10 mg/dl (0-10)
--- NOTE | 2024-04-17 18:20 | PC.NURSE ---
1820- Report received on patient, who is a code stroke. No acute distress noted. TNK administered by previous RN Abraham. Patient resting in supine position, conversational, A&O to person and president, states it is 2010. VS stable 147/85, 96% 2LNC, HR100 regular, RR15.
[2024-04-17 18:25] VITALS: BP 149/84; PULSE 95; RESP 15
--- NOTE | 2024-04-17 18:32 | PC.NURSE ---
1832- Post TNK administration NIHSS 6
--- NOTE | 2024-04-17 18:35 | PC.NURSE ---
1835 - [facility] at [facility] to take patient to , Report given to Aleida FRIEDMAN.
--- NOTE | 2024-04-17 18:39 | PC.NURSE ---
1840 - Patient exited facility with [facility].
[2024-04-17 18:41] VITALS: BP 149/84; PULSE 95; RESP 16; TEMP 36.7
--- NOTE | 2024-04-17 19:44 | PC.NURSE ---
I spoke with PHARMD at and verified the dose of TNK
== END 2024-04-17 18:43 | disposition short-term general hospital (02) ==
PROVIDERS: Emergency Provider Emergency Medicine; PCP Nurse Practitioner Family
DX: I63.12 Cerebral infarction due to embolism of basilar artery (principal); R41.82 Altered mental status, unspecified; I69.354 Hemiplegia and hemiparesis following cerebral infarction affecting left non-dominant side
CPT/HCPCS: 70450; 70496; 70498; 80053; 80061; 80307; 80320; 81001; 84484; 85025; 85610; 85730; 93005; 96374; 99291; G0480; J3101; Q9967

== ENCOUNTER 2024-07-30 17:32 | Emergency (ER) | payer MEDICARE, MEDICAID, SELFPAY ==
[2024-07-30] VITALS (14 sets, daily range): BP systolic 94–171; BP diastolic 72–102; PULSE 72–93; RESP 12–18; TEMP 36.6–37; O2SAT 91–96; BMI 23.7
--- NOTE | 2024-07-30 17:29 | ECG_ITS ---
APPROVED REPORT Exam: Resting ECG HR:86 bpm ECG Measurements Heart Rate 86 AXES ME 140 P 51 QRSd 102 QRS -32 QT 379 T 87 QTc 422 Conclusion SINUS RHYTHM WITH OCCASIONAL SUPRAVENTRICULAR PREMATURE COMPLEXES LEFT AXIS DEVIATION [QRS AXIS < -30] LEFT VENTRICULAR HYPERTROPHY AND ST-T CHANGE [VOLTAGE CRITERIA PLUS ST/T ABNORMALITY] ABNORMAL ECG UNCONFIRMED REPORT Electronically signed by : GRACIE DIA, 08/02/2024 23:44:24
--- NOTE | 2024-07-30 17:34 | XR_ITS ---
PROCEDURE INFORMATION: Exam: XR Chest Exam date and time: 07/30/2024 6:18 PM Age: 84 years old Clinical indication: Cough; Additional info: Cp TECHNIQUE: Imaging protocol: Radiologic exam of the chest. Views: 1 view. Total images: 1 COMPARISON: CR XR CHEST PORTABLE 04/13/2024 4:27 PM FINDINGS: Tubes, catheters and devices: EKG leads are present. Lungs: Scattered calcified pulmonary granuloma. Mild left basilar atelectasis. No airspace consolidation or vascular congestion. Pleural spaces: Chronic blunting of the left lateral costophrenic angle. No significant pleural effusion. No pneumothorax. Heart/Mediastinum: Unremarkable. No cardiomegaly. No mediastinal widening or hilar enlargement. Vasculature: Atherosclerotic and tortuous thoracic aorta. Diaphragm: Minor elevation left hemidiaphragm. Bones/joints: Osseous demineralization. Moderate degenerative changes thoracic spine and bilateral shoulders/AC joints. IMPRESSION: 1. No radiographically acute cardiopulmonary process. 2. Stable chronic findings.
--- NOTE | 2024-07-30 17:39 | ED_ITS ---
<Statement entered by Dominique Pavon MD - 07/30/24 21:52> I was consulted by the JONATHAN, and we discussed the complexity of problems being addressed. I approved the treatment and management plan for this patient's care in the emergency department, thus performing a substantive portion of the medical decision making. Dominique Pavon MD Discharge Plan Disposition Patient Disposition: Home, Self-Care Prescriptions Prescriptions: No Action atorvastatin 40 mg Tablet 40 mg PO HS 30 Days Qty: 30 0RF metoprolol succinate 50 mg tablet extended release 24 hr 50 mg PO DAILY 30 Days Qty: 0 0RF Patient Comments: TAKE ONE TABLET BY MOUTH EVERY DAY - NEEDS APPT clopidogrel 75 mg Tablet 75 mg PO DAILY 30 Days Qty: 30 0RF tamsulosin [Flomax] 0.4 mg Capsule 0.4 mg PO HS 30 Days Qty: 30 0RF metformin 1,000 mg Tablet 1,000 mg PO BID 30 Days Qty: 0 0RF gabapentin 300 mg capsule 300 mg PO HS 30 Days Qty: 30 0RF furosemide [Lasix] 20 mg Tablet 20 mg PO DAILY 30 Days Qty: 30 0RF gabapentin 100 mg Capsule 100 mg PO DAILY 30 Days Qty: 30 0RF duloxetine 60 mg Capsule,Delayed Release(Dr/Ec) 60 mg PO DAILY 30 Days Qty: 30 0RF Referrals Follow up/Referrals: Provider,Referral, [Primary Care Provider] - See instructions Activity Restrictions/Add. Instructions Additional Instructions/Restrictions: Today you were evaluated in the emergency department. Your lab workup was overall unremarkable, please follow-up with your family doctor tomorrow. Please return to the ED for worsening of condition. Please increase your fluid intake. Clinical Impressions Clinical Impression: Chest pain Qualifiers: Chest pain type: unspecified Qualified Code(s): R07.9 - Chest pain, unspecified Instructions Patient Instructions: DI for Chest Pain Print Language Print Language: Kittitian Discharge ED Provider: Dominique Pavon General Adult HPI General Chief complaint: PAIN Stated complaint: CP Time Seen by Provider: 07/30/24 17:37 History of Present Illness HPI narrative: patient is an 84-year-old male PMHx history of acute stroke, dementia, BPH, peripheral neuropathy, diabetes, CAD, encephalopathy, failure to thrive who presents to the ED via EMS from home with complaints of chest pain. Patient states that his chest pain started this morning, has been intermittent throughout the day. He describes his chest pain as a burning intermittent pain. He reports that pain radiates into his back and into bilateral arms. Related Data Previous Rx's ?Medication ?Instructions ?Recorded atorvastatin 40 mg tablet 40 mg PO HS 30 days #30 tabs 04/14/24 clopidogrel 75 mg tablet 75 mg PO DAILY 30 days #30 tabs 04/14/24 duloxetine 60 mg capsule,delayed 60 mg PO DAILY 30 days #30 caps 04/14/24 release furosemide 20 mg tablet (Lasix) 20 mg PO DAILY 30 days #30 tabs 04/14/24 gabapentin 100 mg capsule 100 mg PO DAILY 30 days #30 caps 04/14/24 gabapentin 300 mg capsule 300 mg PO HS 30 days #30 caps 04/14/24 metformin 1,000 mg tablet 1,000 mg PO BID 30 days #0 tabs 04/14/24 metoprolol succinate 50 mg 50 mg PO DAILY 30 days #0 tabs 04/14/24 tablet,extended release 24 hr tamsulosin 0.4 mg capsule (Flomax) 0.4 mg PO HS 30 days #30 caps 04/14/24 Allergies Allergy/AdvReac Type Severity Reaction Status Date / Time No Known Allergies Allergy Verified 04/13/24 15:49 [facility] Disclaimer: The information contained in this section may have been updated after the patient was seen, as this information can be updated by other users. Social History (Updated 04/13/24 @ 17:58 by [place]o [place] MD) Smoking Status: Never smoker alcohol intake: never current occupational status: retired Travel in the last 8 weeks?: None Have you lived/traveled outside [place] in past 30 days?: No Contact w/someone who lives/traveled outside [place] past 30 days?: No Exposure to someone with infectious disease in past 14 days?: No Do you have a fever (greater than 100.4 F or 38 C)?: No Have you tested positive for COVID-19?: No Exposed to someone with COVID-19 in past 14 days?: No Do you have a sore throat?: No Do you have a cough?: No Do you have any weakness?: No Do you have any diarrhea?: No Are you experiencing any unusual bleeding?: No Do you have any muscle aches/pain?: No Do you have any abdominal pain?: No Are you experiencing loss of taste or smell?: No Other Medical History Have you received the Flu Vaccine for this season: No Have you received the Pneumonia Vaccine: No ROS Obtained: Yes Systems reviewed as appropriate & no additional complaints except as documented Physical Exam General General appearance: alert and in no apparent distress Head Head exam: atraumatic and normocephalic Eye Eye exam: Present normal appearance and PERRL ENT ENT exam: Present normal exam Neck Neck exam: Present normal inspection Chest Chest inspection: Present normal inspection and symmetric chest wall rise; Absent tenderness Respiratory Respiratory exam: Present normal lung sounds bilaterally Cardiovascular Cardiovascular exam: Present regular rate Abdominal Exam Abdominal exam: Present soft and normal bowel sounds; Absent tenderness Extremities Exam Extremities exam: Present normal inspection and full ROM Back Exam Back exam: Present normal inspection and full ROM Neurological Exam Neurological exam: Present alert and oriented X3 Psychiatric Psychiatric exam: Present normal affect and normal mood Skin Skin exam: Present warm and dry Medical Decision Making Medical Records Screening: Per USPSTF and CDC recommendations, given the prevalence of disease in our region, it is our hospital?s policy to screen for HIV and viral Hepatitis for all patients aged 18 and over and those with ongoing risk factors. Ang Inquiry Pt receiving controlled substance: No Vital Signs: 07/30/24 17:33 07/30/24 17:56 07/30/24 18:00 Temperature 98.0 F Temperature Source Oral Pulse Rate 92 H 92 H Pulse Rate [Radial] 80 Respiratory Rate 18 13 13 Blood Pressure 141/88 H 150/74 H Blood Pressure [Right Arm] 94/79 L Blood Pressure Mean 105 99 Blood Pressure Mean [Right Arm] 84 Blood Pressure Source [Right Arm] Automatic Cuff Blood Pressure Position [Right Arm] Supine 02 Sat by Pulse Oximetry 95 93 L 95 Oxygen Delivery Method Room Air 07/30/24 18:30 07/30/24 19:00 07/30/24 19:30 Temperature Temperature Source Pulse Rate 93 H 90 88 Pulse Rate [Radial] Respiratory Rate 13 12 12 Blood Pressure 143/86 H 147/79 H 152/86 H Blood Pressure [Right Arm] Blood Pressure Mean Blood Pressure Mean [Right Arm] Blood Pressure Source [Right Arm] Blood Pressure Position [Right Arm] 02 Sat by Pulse Oximetry 93 L 91 L 94 L Oxygen Delivery Method 07/30/24 19:45 07/30/24 20:00 07/30/24 20:31 Temperature Temperature Source Pulse Rate Pulse Rate [Radial] Respiratory Rate 12 16 15 Blood Pressure 171/92 H Blood Pressure [Right Arm] Blood Pressure Mean Blood Pressure Mean [Right Arm] Blood Pressure Source [Right Arm] Blood Pressure Position [Right Arm] 02 Sat by Pulse Oximetry Oxygen Delivery Method 07/30/24 21:00 Temperature Temperature Source Pulse Rate Pulse Rate [Radial] Respiratory Rate 12 Blood Pressure 147/91 H Blood Pressure [Right Arm] Blood Pressure Mean Blood Pressure Mean [Right Arm] Blood Pressure Source [Right Arm] Blood Pressure Position [Right Arm] 02 Sat by Pulse Oximetry Oxygen Delivery Method Lab Data Lab Results 07/30/24 17:34: VBG pH 7.39, VBG pCO2 42.9, VBG pO2 58.8 H, VBG HCO3 25.2, VBG Total CO2 26.5, VBG O2 Saturation 89.1 H, VBG Base Excess 0.1, VBG Lactic Acid 3.7 H 07/30/24 17:59: WBC 9.9, RBC 3.84 L, Hgb 13.4 L, Hct 38.7 L, MCV 100.8 H, MCH 34.9 H, MCHC 34.6, RDW 15.5, Plt Count 333, MPV 9.3, Neut % (Auto) 60.7, Lymph % (Auto) 29.1, [place] % (Auto) 7.2, Eos % (Auto) 2.3, Baso % (Auto) 0.5, Neut # (Auto) 6.0, Lymph # (Auto) 2.9, [place] # (Auto) 0.7, Eos # (Auto) 0.2, Baso # (Auto) 0.1, Sodium 135 L, Potassium 4.8, Chloride 101, Carbon Dioxide 28, Anion Gap 10.8, BUN 20, Creatinine 0.60 L, Estimated Creat Clear 62, Estimated GFR 129, Est GFR ( Amer) 156, Glucose 134 H, Calcium 8.9, Total Bilirubin 1.3, AST 37, ALT 29, Alkaline Phosphatase 48, Troponin I 0.02, NT-Pro-B Natriuret Pep 991 H, Total Protein 7.4, Albumin 4.1, Globulin 3.3 H, Albumin/Globulin Ratio 1.2 07/30/24 20:45: Troponin I 0.02 07/30/24 20:50: Lactate 3.5 H 07/30/24 17:59 07/30/24 17:59 Orders (Tests/Meds): ED MEDICATIONS Generic Name Dose Route Start Last Admin Trade Name Freq PRN Reason Stop Dose Admin Sodium Chloride 1,000 mls @ 250 mls/hr 07/30/24 18:42 07/30/24 19:09 Sod Chlor 0.9% 1000ml Bag IV 07/30/24 22:41 250 mls/hr .Q4H ONE Administration Discontinued Medications Generic Name Dose Route Start Last Admin Trade Name Freq PRN Reason Stop Dose Admin Acetaminophen 500 mg 07/30/24 21:37 07/30/24 21:41 Acetaminophen 500mg Tab PO 07/30/24 21:38 500 mg ONCE ONE Administration Belladonna Alkaloids 60 ml 07/30/24 19:37 07/30/24 19:56 Belladonna Alkaloids 60 Ml Ml PO 07/30/24 19:38 60 ml ONCE ONE Administration Iopamidol 80 ml 07/30/24 18:46 07/30/24 18:51 Iopamidol-370 (76%);100ml Bottle IV 07/30/24 18:47 80 ml ONCE ONE Administration Morphine Sulfate 4 mg 07/30/24 17:38 07/30/24 18:02 Morphine 4mg/Ml Syringe IV 07/30/24 17:39 4 mg ONCE ONE Administration Ondansetron HCl 4 mg 07/30/24 17:38 07/30/24 18:02 Ondansetron 4mg/2ml Vial IV 07/30/24 17:39 4 mg ONCE ONE Administration Sodium Chloride 50 ml 07/30/24 18:46 07/30/24 18:51 0.9 % Sodium Chloride 50 Ml Vial IV 07/30/24 18:47 50 ml ONCE ONE Administration Sodium Chloride 10 ml 07/30/24 18:46 07/30/24 18:51 Sodium Chloride 0.9% 10ml Syr (Rad Only) IV 07/30/24 18:47 10 ml ONCE ONE Administration ORDERS Category Date Time Status CTA Chest [CT angio chest - dissection] Stat Cat Scan 07/30/24 17:40 Completed XR chest portable Stat Exams 07/30/24 17:34 Completed Complete Blood Count Auto Diff Stat Lab 07/30/24 17:59 Completed Comprehensive Metabolic Panel Stat Lab 07/30/24 17:59 Completed Lactic Acid Follow Up (RFLX 1) Stat Lab 07/30/24 21:37 Ordered Lactic Acid Stat Lab 07/30/24 20:50 Completed NT Pro Brain Natriuretic Pep. Stat Lab 07/30/24 17:59 Completed Troponin I Q3H Lab 07/30/24 20:45 Completed Troponin I Q3H Lab 07/30/24 23:45 Ordered Troponin I Stat Lab 07/30/24 17:59 Completed Urinalysis and Microscopic Stat Lab 07/30/24 18:46 Ordered Venous Blood Gas Stat RT 07/30/24 17:34 Completed Medical Decision Narrative: In summary, patient is an 84-year-old male PMHx history of acute stroke, dementia, BPH, peripheral neuropathy, diabetes, CAD, encephalopathy, failure to thrive who presents to the ED via EMS from home with complaints of chest pain. He states he saw his PCP earlier today for a check up and was advised to come to ED for CP evaluation. Patient states that his chest pain started this morning, has been intermittent throughout the day. He describes his chest pain as a burning intermittent pain. He reports that pain radiates into his back and into bilateral arms. He had chest pain in the past without diagnosis. He has not followed up with cardiology in a long time . He denies any recent falls or trauma. Denies any rash. Denies any new medication changes. He was previously in a usp, his son removed him from usp to care for him at home. Denies fever, chills, body aches, headache, visual disturbances, leg pain. Differential diagnosis include ACS, dissection, pulmonary embolism, infectious process, electrolyte abnormality, dehydration, among others. Upon initial evaluation patient is alert, oriented to current situation, hemodynamically stable. Physical exam is unremarkable. Chest wall nontender. Discussed with patient that we will proceed with EKG, chest x-ray, CTA and hematologic labs. Labs reviewed. CBC unremarkable for any leukocytosis, stable H&H. CMP unremarkable for any actionable abnormalities. BNP 991. 1st trop < 0.02. 2nd trop . Lactic acid 3.7 (previous lactic on chart 3.3). Repeat lactic acid after fluids 3.5. Patient symptomatically managed with morphine and Zofran. After CTs resulted patient was managed with GI cocktail for chest burning. Upon reassessment, patient states his condition has improved. Discussed he will need to follow-up with PCP. Advised him he needs to follow-up with cardiology. We discussed return precautions to the ED and patient verbalized understanding. Family updated by staff. Critical Care Critical Care Time Critical Care Time: No
--- NOTE | 2024-07-30 17:40 | CT_ITS ---
PROCEDURE INFORMATION: Exam: CTA Chest With Contrast Exam date and time: 07/30/2024 6:46 PM Age: 84 years old Clinical indication: Pain; Radiating; Additional info: Cp radiates to arms and back TECHNIQUE: Imaging protocol: Computed tomographic angiography of the chest with contrast. Exam focused on the arteries. 3D rendering (Not supervised by radiologist): MIP and/or 3D reconstructed images were created by the technologist. Total images: 777 Radiation optimization: All CT scans at this facility use at least one of these dose optimization techniques: automated exposure control; mA and/or kV adjustment per patient size (includes targeted exams where dose is matched to clinical indication); or iterative reconstruction. Contrast material: ISOVUE; Contrast volume: 80 ml; Contrast route: INTRAVENOUS (IV); COMPARISON: CR XR CHEST PORTABLE 07/30/2024 6:18 PM FINDINGS: Pulmonary arteries: Adequate contrast opacification of the pulmonary arteries. No acute pulmonary emboli. Aorta: Atherosclerotic nonaneurysmal thoracic aorta. No dissection. 3.5 cm infrarenal abdominal aortic aneurysm without rupture. Lungs: The trachea and main bronchi are patent. Mild bronchial wall thickening. Multiple scattered bilateral calcified pulmonary granuloma. Mild bibasilar atelectasis. No airspace consolidation. No pulmonary mass. Prior 5 mm noncalcified left upper lobe nodule is not redemonstrated. Pleural spaces: Trace bilateral pleural effusions. Heart: Normal heart size. No pericardial effusion. Coronary arteries: Extensive coronary artery calcifications. Esophagus: Mild wall thickening of the mid esophagus. Mediastinal space: No mediastinal mass or hematoma. Lymph nodes: No mediastinal or hilar lymphadenopathy. Partially calcified mediastinal and hilar lymph nodes compatible with remote granulomatous disease. Gallbladder and biliary ducts: Cholelithiasis without secondary signs for acute cholecystitis. Kidneys: 3 mm right intrarenal calculus. No hydronephrosis. Bones/joints: Osseous demineralization. DISH/ankylosis of the thoracic spine. Mild increased thoracic kyphosis. Minor broad-based thoracic dextrocurvature. Soft tissues: Unremarkable. IMPRESSION: 1. No acute pulmonary emboli. 2. Trace bilateral pleural effusions. 3. Mild bibasilar atelectasis. 4. Remote calcified granulomatous disease. 5. Extensive coronary artery calcifications. 6. Mild mid esophageal wall thickening, likely reflux esophagitis. 7. 3.5 cm infrarenal abdominal aortic aneurysm without rupture. 8. Cholelithiasis without acute cholecystitis. 9. 3 mm right renal calculus.
[2024-07-30] MEDS: ONDANSETRON 4MG/2ML VIAL 4 MG IV (18:02)
[2024-07-30] MEDS: MORPHINE 4MG/ML SYRINGE 4 MG IV (18:02)
--- NOTE | 2024-07-30 18:04 | PC.NURSE ---
pt rounded on no needs at this time.
[2024-07-30 18:06] LABS: VBG Base Excess 0.1 mmol/L (-2.4-2.3); VBG HCO3 25.2 mmol/L (23-30); VBG Oxygen Saturation 89.1 % (50-70); VBG PCO2 42.9 mmol/L (35-51); VBG PH 7.39 mmol/L (7.31-7.41); VBG PO2 58.8 mmol/L (28-40); VBG Total CO2 26.5 mmol/L (23-27)
[2024-07-30 18:07] LABS: Basophils # 0.1 K/mm3 (0-0.2); Basophils % 0.5 % (0.1-2.0); Eosinophils # 0.2 Kmm3 (0.0-0.4); Eosinophils % 2.3 % (0.1-12.0); Hematocrit 38.7 % (42.0-52.0); Hemoglobin 13.4 g/dL (14.1-18.0); Immature Granulocytes # 0.02 10^3uL; Immature Granulocytes % 0.2 %; Lymphocytes # 2.9 K/mm3 (0.7-4.5); Lymphocytes % 29.1 % (10-50); Mean Corpuscular HGB Conc 34.6 g/dL (31.8-35.4); Mean Corpuscular Hemoglobin 34.9 pg (27.0-31.2); Mean Corpuscular Volume 100.8 fl (80-94); Mean Platelet Volume 9.3 fl (7.4-10.4); Monocytes # 0.7 K/mm3 (0.1-1.0); Monocytes % 7.2 % (1.7-9.3); Neutrophils % 60.7 % (37.0-80.0); Nucleated Red Blood Cells # 0.28 10^3/uL; Nucleated Red Blood Cells % 2.8 %; Platelet Count 333 K/mm3 (142-424); Red Blood Count 3.84 M/mm3 (4.60-6.20); Red Cell Distribution Width 15.5 % (11.5-17.5); Red Cell Distribution Width-SD 55.6 fL; White Blood Count 9.9 K/mm3 (4.8-10.8)
[2024-07-30 18:08] LABS: Lactate Venous 3.7 mmol/L (0.4-2.0)
[2024-07-30 18:17] LABS: Alanine Aminotransferase 29 U/L (12-78); Albumin Level 4.1 g/dl (3.5-5.0); Albumin/Globulin Ratio 1.2 (1.1-1.8); Alkaline Phosphatase 48 U/L (38-126); Anion Gap 10.8 mEq/L (5-15); Aspartate Amino Transferase 37 U/L (17-59); Bilirubin,Total 1.3 mg/dl (0.2-1.3); Blood Urea Nitrogen 20 mg/dl (9-20); Calcium 8.9 mg/dl (8.4-10.2); Carbon Dioxide 28 mmol/L (22.0-30.0); Chloride 101 mmol/L (98-107); Creatinine Clearance Estimated 62 mL/min (50-200); Estimated Glomerular Filt Rate 129 ml/min (>60); GFR (African American) 156 ML/MIN (>60); Globulin 3.3 g/dL (1.3-3.2); Glucose 134 mg/dl (74-100); Potassium 4.8 mmoL/L (3.5-5.1); Sodium 135 mmol/L (136-145); Total Protein,Serum 7.4 g/dl (6.3-8.2)
[2024-07-30 18:28] LABS: NT Pro Brain Natriuretic Pep. 991 pg/mL (0-450); Troponin I 0.02 ng/ml (0.00-0.034)
[2024-07-30] MEDS: 0.9 % SODIUM CHLORIDE 50 ML VIAL IV (18:51)
[2024-07-30] MEDS: SODIUM CHLORIDE 0.9% 10ML SYR (RAD ONLY) 10 ML IV (18:51)
[2024-07-30] MEDS: IOPAMIDOL-370 (76%);100ML BOTTLE 80 ML IV (18:51)
[2024-07-30] MEDS: 0.9 % SODIUM CHLORIDE 1000ML 1,000 ML 250 ML IV (19:09)
[2024-07-30] MEDS: BELLADONNA ALKALOIDS 60 ML ML PO (19:56)
[2024-07-30 21:19] LABS: Troponin I 0.02 ng/ml (0.00-0.034)
[2024-07-30 21:25] LABS: Lactic Acid 3.5 mmol/L (0.7-2.1)
[2024-07-30 21:37] LABS: Reflex Lactic Add Lactic Reflex
[2024-07-30] MEDS: ACETAMINOPHEN 500MG TAB 500 MG PO (21:41)
--- NOTE | 2024-07-30 22:09 | PC.NURSE ---
Patient waiting on EMS for transport home
== END 2024-07-30 22:40 | disposition home or self-care (01) ==
PROVIDERS: Nurse Practitioner; Emergency Provider Student in an Organized Health Care Education/Training Program
DX: R07.89 Other chest pain (principal); I25.10 Atherosclerotic heart disease of native coronary artery without angina pectoris; E11.9 Type 2 diabetes mellitus without complications
CPT/HCPCS: 71045; 71275; 80053; 82803; 83605; 83880; 84484; 85025; 93005; 96361; 96374; 96375; 99285; J2270; J2405; J7030; Q9967